=== PATIENT | female | born 1990 | race Hispanic/Latino ===

== ENCOUNTER 2019-12-14 10:02 | Outpatient (CLI) | payer OTHER, SELFPAY ==
--- NOTE | ~2019-12-14 | US_ITS ---
EXAMINATION: US OB follow up DATE: 12/14/2019 10:31 INDICATION: Declining beta hCG levels. TECHNIQUE: Real-time transabdominal obstetric ultrasound. FINDINGS: No prior studies for comparison. There is a single living fetus in variable presentation. The placenta is posterior with placenta pre via. cardiac activity and movement is noted with a heart rate of 161 beats per minute. T he amniotic fluid volume is subjectively normal. The following biometric data were obtained: BPD: 30mm corresponds to gestational age 15 weeks 3 days. Head circumference: 108mm corresponds to gestational age 15 weeks 1 days. Abdominal circumference: 91mm corresponds to gestational age 15 weeks 2 days. Femur length: 17mm corresponds to gestational age 14 weeks 6 days. Estimated weight: 115grams +/- 17grams.] IMPRESSION: 1. Single living intrauterine in variable presentation with an estimated gestational age o f 15 weeks 1 days by current ultrasound. EDC by measurements is 06/05/2020. 2. Placenta previa. Reviewed, dictated and finalized at location B. IMPRESSION: 1. Single living intrauterine in variable presentation with an estim ated gestational age of 15 weeks 1 days by current ultrasound. EDC by measureme nts is 06/05/2020. 2. Placenta previa.
== END 2019-12-14 10:03 | disposition home or self-care (01) ==
PROVIDERS: PCP Physician Assistant; Visit Provider Obstetrics & Gynecology Gynecology
DX: O44.02 Complete placenta previa NOS or without hemorrhage, second trimester (principal); Z3A.15 15 weeks gestation of pregnancy
CPT/HCPCS: 76816

== ENCOUNTER 2020-01-01 11:22 | Observation (INO) | payer OTHER, SELFPAY ==
[2020-01-01] VITALS (9 sets, daily range): BP systolic 114–127; BP diastolic 61–84; PULSE 84–135; TEMP 36.5; BMI 31.1
--- NOTE | ~2020-01-01 | US_ITS ---
EXAMINATION: US right upper quadrant EXAM DATE: 01/01/2020 16:24 INDICATION: Right upper quadrant pain. TECHNIQUE: Multiple grayscale and Doppler images of the abdomen right upper quadrant were obtained (b y a technologist who performed the scan) and subsequently reviewed. There is no prior study for allan connelly. FINDINGS: The pancreatic head and body are normal in appearance. The pancreatic tail is not visualized. The l iver has normal echogenicity and contour. There are no focal liver lesions identified. There is no evidence of intrahepatic biliary duct dilation. Portal venous flow was seen in the hepatopedal, nor mal direction and has normal Doppler waveform. No right-sided hydronephrosis. Common bile duct measures 4 mm, which is normal. The gallbladder wall is normal in thickness, with ex pected amount of distention. No sonographic evidence of pericholecystic fluid. There is cholelithia sis. Technologist performing exam reports patient did not demonstrate sonographic Contreras's sign. P jerri note that this sign is less reliable in patients who have received pain medication. IMPRESSION: 1. Cholelithiasis. Reviewed, dictated and finalized at location A. IMPRESSION: 1. Cholelithiasis.
--- NOTE | 2020-01-01 12:27 | OBADM ---
This patient, Gricelda Hand, admitted to the OB room OB Post 115 for observation. Patient/family oriented to hospital policies and general routines including ID bracelet, bed and alarms, visiting hours, pain management, procedures, bathroom and other care routines, personal items, smoking policy, room service/diet, and visiting hours. Patient/Family are encouraged to report perceived risks to care and to ask questions if they do not understand what they are told or what they should do.
[2020-01-01 13:07] LABS: Add Urine Microscopic? YES; Appearance Urine Clear (Clear); Bacteria Urine Trace /hpf; Bilirubin Urine 1+ (Negative); Blood Urine Negative (Negative); Color Urine Amber (Yellow); Glucose Urine UA 1+ mg/dL (Negative); Ketones Urine Negative (Negative); Leukocyte Esterase Ur Negative LEU/UL (NEGATIVE); Mucus Urine Rare /lpf; Nitrate Urine Negative (Negative); Protein Urine 1+ mg/dL (Negative); RBC Urine 0-2 /hpf (0-2); Specific Grav Ur 1.029 (1.001-1.035); Squamous Epithelial Cell Urine Many /hpf (Few); WBC Urine 0-3 /hpf (0-3)
[2020-01-01 14:19] LABS: Glucose Point of Care 48 (65-105)
[2020-01-01] MEDS: DEXTROSE 5%/LACTATED RINGERS 1,000 ML 100 ML IV CONT (14:23)
[2020-01-01 14:25] LABS: Hemoglobin 12.2 g/dL (12.0-15.0); Mean Corpuscular Hemoglobin 26.9 pg (26-34); Mean Corpuscular Volume 81.5 fl (80-100); Mean Platelet Volume 10.3 fl (7.4-10.4); Platelet Count Result 253 k/mm3 (150-375); Red Blood Count 4.54 M/mm3 (4.2-5.4); Red Cell Distribution Width 17.6 % (11.5-14.5); White Blood Count 9.1 K/mm3 (4.5-10.0)
[2020-01-01 14:45] LABS: Alanine Aminotransferase 96 U/L (4-35); Albumin Level 3.5 g/dL (3.5-5.1); Alkaline Phosphatase 93 U/L (38-126); Anion Gap 7.7 mmol/L (7-16); Aspartate Amino Transferase 152 U/L (14-36); Bilirubin,Total 0.8 mg/dL (0.2-1.3); Blood Urea Nitrogen 7 mg/dL (7-17); Calcium 8.9 mg/dL (8.4-10.2); Carbon Dioxide 23 mmol/L (22-30); Chloride 108 mmol/L (98-107); Estimated CRCL calculation 180 ml/min; Estimated Glomerular Filt Rate > 60; Glucose 51 mg/dL (65-105); Potassium 3.7 mmol/L (3.4-5.0); Sodium 135 mmol/L (137-145)
--- NOTE | 2020-01-01 15:07 | PC.NURSE ---
1357--Low blood sugar reported per pt device. Reported to Dr. Aranda. Order for D5LR given. Pt asymptomatic at this time.
--- NOTE | 2020-01-01 15:08 | PC.NURSE ---
1405--Nguyen from vascular access at bedside to start IV.
[2020-01-01] MEDS: INSULIN ASPART (*BKC) 100 UNITS/ML 26 UNITS SUB-Q (17:30)
[2020-01-01 18:05] LABS: Glucose Point of Care 84 (65-105)
[2020-01-01 19:19] LABS: Glucose Point of Care 153 (65-105)
--- NOTE | 2020-01-01 19:44 | PC.NURSE ---
several blood sugars done with her monitor 1530=55 with d5lr going 1630=43 given grahm crackers and milk 1715=85 and dinner is coming will do the rest of the blood sugars with our monitor and use our insulin
[2020-01-01] MEDS: INSULIN HUMAN NPH (*BKC) 100 UNITS/ML 36 UNITS SUB-Q (21:44)
[2020-01-01 21:50] LABS: Glucose Point of Care 99 (65-105)
--- NOTE | 2020-01-02 05:25 | PC.NURSE ---
Pt called out stating she felt like her blood sugar was low.
[2020-01-02 05:36] LABS: Glucose Point of Care 59 (65-105)
--- NOTE | 2020-01-02 05:40 | PC.NURSE ---
Pt states she does not like milk. Guilherme crackers and peanut butter given. Instructed pt we will still check blood sugar prior to breakfast.
--- NOTE | 2020-01-02 07:00 | PC.NURSE ---
Pt sound asleep when RN entered the room. Pt states she has not ordered breakfast yet, instructed to do so and to notify RN when she does so her blood sugar can be checked. Pt verbalized understanding.
[2020-01-02 07:42] LABS: Glucose Point of Care 143 (65-105)
--- NOTE | 2020-01-02 07:49 | PC.NURSE ---
Voicemail left for manufactured buildings repairer about a consult.
--- NOTE | 2020-01-02 08:07 | PC.NURSE ---
Dr. Dennis in department. Update given. New orders received to change bedtime NPH dose.
[2020-01-02] MEDS: INSULIN HUMAN NPH (*BKC) 100 UNITS/ML 30 UNITS SUB-Q (08:27)
[2020-01-02] MEDS: INSULIN ASPART (*BKC) 100 UNITS/ML 26 UNITS SUB-Q (08:28)
[2020-01-02 09:09] VITALS: BP 120/79; PULSE 92
[2020-01-02 09:13] VITALS: RESP 16; TEMP 36.6
[2020-01-02 10:51] LABS: Glucose Point of Care 190 (65-105)
--- NOTE | 2020-01-02 12:08 | PM.OBPNVD ---
OB - PN: Subj Subjective Date/time seen: 01/02/20 12:08 Patient seen this am reports she felt a little shaky but not bad overnite with low blood sugar she ate luba crackers and peanut butter. yesterday sugars were off because of vomiting and late meals. OB - PN: Obj Data Labs CBC & Chem 7: 01/01/20 14:17 01/01/20 14:17 Labs: Laboratory Results - last 24 hr 01/01/20 01/01/20 01/01/20 12:34 14:16 14:17 WBC 9.1 RBC 4.54 Hgb 12.2 Hct 37.0 MCV 81.5 MCH 26.9 MCHC 33.0 RDW 17.6 H Plt Count 253 MPV 10.3 Sodium Potassium Chloride Carbon Dioxide Anion Gap BUN Creatinine Estim Creat Clear Calc Estimated GFR Glucose POC Capillary Glucose 48 L* Calcium Total Bilirubin AST ALT Alkaline Phosphatase Total Protein Albumin Urine Color Flor Urine Appearance Clear Urine pH 7.0 Ur Specific [place] 1.029 Urine Protein 1+ H Urine Glucose (UA) 1+ H Urine Ketones Negative Ur Blood (Man) Negative Urine Nitrate Negative Urine Bilirubin 1+ H Urine Urobilinogen 4.0 H Ur Leukocyte Esterase Negative Urine RBC 0-2 Urine WBC 0-3 Ur Squamous Epith Cells Many H Urine Bacteria Trace Urine Mucus Rare 01/01/20 01/01/20 01/01/20 14:17 18:02 19:15 WBC RBC Hgb Hct MCV MCH MCHC RDW Plt Count MPV Sodium 135 L Potassium 3.7 Chloride 108 H Carbon Dioxide 23 Anion Gap 7.7 BUN 7 Creatinine 0.40 L Estim Creat Clear Calc 180 Estimated GFR > 60 Glucose 51 L* POC Capillary Glucose 84 153 H Calcium 8.9 Total Bilirubin 0.8 AST 152 H ALT 96 H Alkaline Phosphatase 93 Total Protein 6.0 L Albumin 3.5 Urine Color Urine Appearance Urine pH Ur Specific [place] Urine Protein Urine Glucose (UA) Urine Ketones Ur Blood (Man) Urine Nitrate Urine Bilirubin Urine Urobilinogen Ur Leukocyte Esterase Urine RBC Urine WBC Ur Squamous Epith Cells Urine Bacteria Urine Mucus 01/01/20 01/02/20 01/02/20 21:43 05:34 07:39 WBC RBC Hgb Hct MCV MCH MCHC RDW Plt Count MPV Sodium Potassium Chloride Carbon Dioxide Anion Gap BUN Creatinine Estim Creat Clear Calc Estimated GFR Glucose POC Capillary Glucose 99 59 L* 143 H Calcium Total Bilirubin AST ALT Alkaline Phosphatase Total Protein Albumin Urine Color Urine Appearance Urine pH Ur Specific [place] Urine Protein Urine Glucose (UA) Urine Ketones Ur Blood (Man) Urine Nitrate Urine Bilirubin Urine Urobilinogen Ur Leukocyte Esterase Urine RBC Urine WBC Ur Squamous Epith Cells Urine Bacteria Urine Mucus 01/02/20 10:27 WBC RBC Hgb Hct MCV MCH MCHC RDW Plt Count MPV Sodium Potassium Chloride Carbon Dioxide Anion Gap BUN Creatinine Estim Creat Clear Calc Estimated GFR Glucose POC Capillary Glucose 190 H Calcium Total Bilirubin AST ALT Alkaline Phosphatase Total Protein Albumin Urine Color Urine Appearance Urine pH Ur Specific [place] Urine Protein Urine Glucose (UA) Urine Ketones Ur Blood (Man) Urine Nitrate Urine Bilirubin Urine Urobilinogen Ur Leukocyte Esterase Urine RBC Urine WBC Ur Squamous Epith Cells Urine Bacteria Urine Mucus Imaging Radiologist's impression: Impressions Upper Quadrant Ultrasound 01/01/20 16:28 IMPRESSION: 1. Cholelithiasis. OB - PN A/P Assessment and Plan (1) Type 2 diabetes mellitus complicating in second trimester, antepartum: Code(s): O24.112 - Pre-existing type 2 diabetes mellitus, in , second trimester Status: Acute Assessment and Plan: continue to monitor accuchecks
[2020-01-02 12:25] LABS: Glucose Point of Care 87 (65-105)
--- NOTE | 2020-01-02 12:33 | PC.NURSE ---
Dr. Aranda notified of pt's blood glucose prior to lunch. No new orders given.
--- NOTE | 2020-01-02 13:31 | PC.NURSE ---
Another voicemail left for Vanessa, the public health educator.
[2020-01-02 14:53] LABS: Glucose Point of Care 164 (65-105)
[2020-01-02 16:00] VITALS: BMI 31.1
--- NOTE | 2020-01-02 16:07 | PC.NURSE ---
Vanessa, the development educator, at bedside.
[2020-01-02 17:03] VITALS: TEMP 36.7
[2020-01-02 17:07] VITALS: BP 112/31; PULSE 149
[2020-01-02 17:52] LABS: Glucose Point of Care 193 (65-105)
--- NOTE | 2020-01-02 17:55 | PC.NURSE ---
Dr. Aranda notified of pt's blood sugar prior to dinner. New orders received for 28 units of Novalog to be given with dinner.
[2020-01-02] MEDS: INSULIN ASPART (*BKC) 100 UNITS/ML 28 UNITS SUB-Q (18:30)
[2020-01-02 20:29] LABS: Glucose Point of Care 208 (65-105)
[2020-01-02 21:39] VITALS: BP 119/63; PULSE 105
[2020-01-02 21:42] LABS: Glucose Point of Care 179 (65-105)
[2020-01-02] MEDS: INSULIN HUMAN NPH (*BKC) 100 UNITS/ML 34 UNITS SUB-Q (21:58)
[2020-01-03] VITALS (9 sets, daily range): BP systolic 108–140; BP diastolic 62–89; PULSE 85–105; RESP 16–20; TEMP 36.3–36.9; O2SAT 86–100
[2020-01-03 07:18] LABS: Glucose Point of Care 73 (65-105)
--- NOTE | 2020-01-03 07:47 | PM.GYNPNOP ---
DIESEL LOCOMOTIVE FIRER/FIREMAN - A/P Assessment and plan (1) Type 2 diabetes mellitus complicating in second trimester, antepartum: Code(s): O24.112 - Pre-existing type 2 diabetes mellitus, in , second trimester Status: Acute Assessment and Plan: adjusting diet and insulin continue and if continues to improve in numbers and understanding will dc tomorrow am patient decided she was obsessing over her glucose monitor and wants to take a break from it Time Spent With Patient Time: Total time spent is greater than 50% in coordination of care (as documented) at patient's floor/unit and/or counseling patient: Time with patient: less than 15 minutes DIESEL LOCOMOTIVE FIRER/FIREMAN- PN:Subj Post-Op Subjective Date/time seen: 01/03/20 07:47 Interval history: Patient feeling better understanding of her diet and insulin and the importance of timing and not overcorrecting. Exam GI: Other: +FHTs soft nt DIESEL LOCOMOTIVE FIRER/FIREMAN - PN: Obj Data Vital Signs Vital Signs: Vital Signs - 24 hr 01/02/20 09:09 01/02/20 09:13 01/02/20 17:03 Temperature 97.9 F 98.1 F Pulse Rate 92 Respiratory Rate 16 Blood Pressure 120/79 01/02/20 17:07 01/02/20 21:39 Temperature Pulse Rate 149 H 105 H Respiratory Rate Blood Pressure 112/31 L 119/63 Meds/Results Medications: Active Medications Generic Name Dose Route Start Last Admin Trade Name Freq PRN Reason Stop Dose Admin Dextrose 12.5 gm 01/03/20 07:24 Dextrose 50% Syringe IV PUSH PRN PRN Hypoglycemia Protocol Glucagon 1 mg 01/03/20 07:24 Glucagon For Inj IM PRN PRN Hypoglycemia Protocol Glucose 15 gm 01/03/20 07:24 Glutose 15 PO PRN PRN Hypoglycemia Protocol Lactated Ringer's 1,000 mls @ 100 mls/hr 01/01/20 13:20 Lr - Lactated Ringers Iv IV CONT .Q10H YUDELKA Dextrose/Lactated Ringer's 1,000 mls @ 100 mls/hr 01/01/20 14:15 01/01/20 14:23 Dextrose 5%/Lactated Ringers IV CONT 100 mls/hr .Q10H YUDELKA Administration Dextrose 1,000 mls @ 100 mls/hr 01/03/20 07:24 Dextrose 5% 1,000 Ml IVPB PRN PRN Hypoglycemia Protocol Radiology Results: ITS Impressions Upper Quadrant Ultrasound 01/01/20 16:28 IMPRESSION: 1. Cholelithiasis. Labs CBC & Chem 7: 01/01/20 14:17 01/01/20 14:17 Labs: Laboratory Results - last 24 hr 01/02/20 01/02/20 01/02/20 10:27 12:19 14:48 POC Capillary Glucose 190 H 87 164 H 01/02/20 01/02/20 01/02/20 17:48 20:27 21:34 POC Capillary Glucose 193 H 208 H 179 H 01/03/20 07:14 POC Capillary Glucose 73
[2020-01-03] MEDS: INSULIN ASPART (*BKC) 100 UNITS/ML 26 UNITS SUB-Q (08:16)
[2020-01-03] MEDS: INSULIN HUMAN NPH (*BKC) 100 UNITS/ML 30 UNITS SUB-Q (08:17)
--- NOTE | 2020-01-03 08:50 | PC.NURSE ---
Dr. Aranda called with order for surgery consult due to cholelithiasis. Discussed pt's concern about missing appt at MD office yesterday and need for repeat U/S. Dr. Aranda states pt has a placenta previa, but since she hasn't had any active bleeding during the , it is OK for her to walk. Pt does have lifting restrictions. Pt to make appointment to see Dr. Aranda next Tuesday; MD office will contact [facility] and get U/S scheduled for next week.
--- NOTE | 2020-01-03 09:03 | PC.NURSE ---
Rosa at Dr. Love's office notified of consult.
[2020-01-03 10:33] LABS: Glucose Point of Care 114 (65-105)
--- NOTE | 2020-01-03 11:46 | PC.NURSE ---
Pt states she feels like her blood sugar is low. Feels flushed and jittery. Also, has some numbness/tingling in her tongue. Accucheck 44. Pt doesn't like to drink milk. The turkey from a box lunch and 1/2 a peach fruit cup given.
[2020-01-03 11:48] LABS: Glucose Point of Care 44 (65-105)
--- NOTE | 2020-01-03 11:51 | PC.NURSE ---
Dr. Aranda returned page and informed of episode of hypoglycemia and interventions used.
--- NOTE | 2020-01-03 12:08 | PC.NURSE ---
Accucheck still low at 48. Pt remains alert; states jitteriness has resolved. Pt given the rest of the fruit cup.
[2020-01-03 12:13] LABS: Glucose Point of Care 48 (65-105)
--- NOTE | 2020-01-03 12:25 | PC.NURSE ---
Bedside accucheck still 49. Pt is alert and oriented; states she doesn't feel jittery like before. Peanut butter given. Dietary states pt's tray is on the way.
--- NOTE | 2020-01-03 12:30 | PC.NURSE ---
Pt's lunch tray here and pt set up to eat. Remains alert and denies feeling any symptoms of hypoglycemia.
--- NOTE | 2020-01-03 13:02 | PM.CNGS ---
Assessment and Plan Assessment and plan (1) Cholelithiases: Code(s): K80.20 - Calculus of gallbladder without cholecystitis without obstruction Status: Acute Assessment and Plan: The patient has evidence of cholelithiasis on ultrasound. There is no evidence of acute cholecystitis at this time. She is no longer having any abdominal pain and is non-tender on exam. WBC and LFTs are normal. I discussed the patient's case and plan of care with Dr. Love. No indication for surgery at this time. The patient is already eating a diabetic diet, but I did also recommend following a low fat diet. If the patient has any further surgical issues, please let us know. Thank you for allowing us to see the patient in consultation. (2) Nausea and vomiting during : Code(s): O21.9 - Vomiting of , unspecified Status: Acute (3) Type 1 diabetes mellitus affecting in second trimester, antepartum: Code(s): O24.012 - Pre-existing type 1 diabetes mellitus, in , second trimester Status: Acute History of Present Illness Consult details Consult date: 01/03/20 Reason for consult: gallstones Requesting physician: Estefany Aranda MD Narrative: This is a 29-year-old female with type 1 diabetes mellitus who is 18 weeks gestation and presented to the hospital 2 days ago for right upper quadrant abdominal pain and blood glucose monitoring. The patient reports she has been having issues with controlling her blood sugars at home fluctuating between both too high and too low. She reports that for the last few weeks she began noticing mild right upper quadrant and epigastric abdominal pain that would start in the late evening or during the night. The pain was tolerable and would spontaneously resolve before the morning. This would happen a few times during the week. She felt that typically it was after eating spicy foods at dinner. She has also had associated nausea and vomiting at night that would resolve and not occur during the daytime. Three days ago, the patient had the same type of abdominal pain start during the night, but this time it continued into the morning which was unusual. She had vomited once that morning. She reports that she was supposed to come into the hospital for glucose monitoring this week and decided to come in early that day due to the pain. She had a right upper quadrant abdominal ultrasound that showed cholelithiasis. Labs revealed a normal white blood cell count, normal LFTs, and hypoglycemia. She states that her pain, nausea, and vomiting resolved throughout the day. Since then, she states that the last two nights she had not had any symptoms at all. No abdominal pain, nausea, or vomiting and she is currently tolerating a diabetic diet. She has also been avoiding high fat foods while in the hospital. Our service was consulted for the findings of cholelithiasis. The patient is now being seen in the OB unit. She denies fever, chills, diarrhea, or current abdominal pain. No other complaints at this time. Review of Systems Constitutional: Constitutional: Reports as per HPI, Denies chills, Denies excessive sweating, Denies fatigue, Denies fever(s), Denies headache(s) and Denies weakness Eyes: Eyes: Denies change in vision and Denies loss of vision ENT: Reports Normal hearing present, Denies dizziness and Denies headache(s) Cardiovascular: Cardiovascular: Denies chest pain, Denies syncope, Denies leg edema, Denies lightheadedness, Denies radiating jaw, neck or arm pain and Denies dyspnea Respiratory: Respiratory: Denies cough, Denies dyspnea and Denies wheezing Gastrointestinal: Gastrointestinal: Reports as per HPI, Reports no additional gastrointestinal complaints, Reports abdominal pain (epigastric and RUQ), Denies bloating, Denies change in bowel habits, Denies constipation, Denies dysphagia, Denies diarrhea, Denies loose stools, Reports nausea and Reports vomiting Musculoskeleta
--- NOTE | 2020-01-03 13:04 | PC.NURSE ---
Pt just finished eating her lunch. States all symptoms have resolved. Accucheck 56.
--- NOTE | 2020-01-03 13:11 | PC.NURSE ---
Dr. Aranda on unit and updated on pt's blood sugars and interventions.
[2020-01-03 13:30] LABS: Glucose Point of Care 56 (65-105)
[2020-01-03 13:30] LABS: Glucose Point of Care 67 (65-105)
[2020-01-03 13:30] LABS: Glucose Point of Care 49 (65-105)
[2020-01-03 14:44] LABS: Glucose Point of Care 75 (65-105)
[2020-01-03 17:02] LABS: Glucose Point of Care 133 (65-105)
[2020-01-03] MEDS: INSULIN ASPART (*BKC) 100 UNITS/ML 24 UNITS SUB-Q (17:52)
--- NOTE | 2020-01-03 18:03 | PM.PNGS ---
Progress Note: A&P Assessment and Plan (1) Nausea and vomiting during : Code(s): O21.9 - Vomiting of , unspecified Status: Acute Assessment and Plan: this seems to be much improved. Her symptoms could be due to gallstones but I would certainly want to avoid surgery unless there were signs of acute cholecystitis. Recommend low-fat diet and continued observation. I discussed the symptoms of cholecystitis with her. Okay for low-fat diet. We will follow along with you. (2) Cholelithiases: Code(s): K80.20 - Calculus of gallbladder without cholecystitis without obstruction Status: Acute Assessment and Plan: See above. (3) Type 1 diabetes mellitus affecting in second trimester, antepartum: Code(s): O24.012 - Pre-existing type 1 diabetes mellitus, in , second trimester Status: Acute Assessment and Plan: Abdominal symptoms could be associated with elevated blood sugars and . Follow diabetic diet as well as avoiding fatty meals. Subjective Subjective Date/Time Seen: 01/03/20 18:03 Patient is a very nice 29-year-old woman who is an insulin-dependent diabetic. She is 18 weeks gestational age . She has been having some right upper quadrant and epigastric abdominal pain but not very severe. Then 3 days ago she had a pretty bad episode. She also has some poorly-controlled blood sugars and these have been managed while she is in the hospital. She has not had any abdominal pain or nausea in the last 3 days. She had an ultrasound which showed gallstones but no evidence of cholecystitis. She is seen in consultation regarding her abdominal pain and gallstones. She has no pain at all right now. She has no nausea. Her blood sugars are showing better control. Review of Systems Review of Systems: All systems reviewed & are unremarkable except as noted in HPI and below ( HPI) Exam GI: Inspection: non-distended, no scars and other ( gravid uterus) GI Palp: Yes Soft to palpation, No Tenderness to palpation present (GI), No Hepatomegaly present, No Hernia present and No Palpable mass present Auscultation: normal bowel sounds Objective Data Vital Signs Vital Signs: Vital Signs - 24 hr 01/02/20 21:39 01/03/20 08:04 01/03/20 08:05 Temperature 36.7 C Pulse Rate 105 H 91 85 Respiratory Rate 20 Blood Pressure 119/63 116/62 116/62 Pulse Oximetry 97 99 01/03/20 12:00 01/03/20 12:01 01/03/20 12:15 Temperature 36.3 C L Pulse Rate 105 H 103 H 92 Respiratory Rate 20 Blood Pressure 128/74 140/89 120/71 Pulse Oximetry 01/03/20 16:51 01/03/20 16:52 Temperature 36.9 C Pulse Rate 93 93 Respiratory Rate 16 Blood Pressure 108/62 108/62 Pulse Oximetry 97 98 Intake/Output Intake/Output: Intake & Output 12/31/19 01/01/20 01/02/20 01/03/20 23:59 23:59 23:59 23:59 Intake Total 200 400 Balance 200 400 Meds/Results Medications: Active Medications Generic Name Dose Route Start Last Admin Trade Name Freq PRN Reason Stop Dose Admin Dextrose 12.5 gm 01/03/20 07:24 Dextrose 50% Syringe IV PUSH PRN PRN Hypoglycemia Protocol Glucagon 1 mg 01/03/20 07:24 Glucagon For Inj IM PRN PRN Hypoglycemia Protocol Glucose 15 gm 01/03/20 07:24 Glutose 15 PO PRN PRN Hypoglycemia Protocol Dextrose 1,000 mls @ 100 mls/hr 01/03/20 07:24 Dextrose 5% 1,000 Ml IVPB PRN PRN Hypoglycemia Protocol Radiology Results: ITS Impressions Upper Quadrant Ultrasound 01/01/20 16:28 IMPRESSION: 1. Cholelithiasis. Labs Labs: Laboratory Results - last 24 hr 01/02/20 01/02/20 01/03/20 20:27 21:34 07:14 POC Capillary Glucose 208 H 179 H 73 01/03/20 01/03/20 01/03/20 10:27 11:46 12:08 POC Capillary Glucose 114 H 44 L* 48 L* 01/03/20 01/03/20 01/03/20 12:25 13:04 13:25 POC Capillary Glucose 49 L*
[2020-01-03 19:35] LABS: Glucose Point of Care 249 (65-105)
--- NOTE | 2020-01-03 19:38 | PC.NURSE ---
193- called Dr. Aranda- informed of BS of 249 1 hour postprandial. will not correct now. will recheck at bedtime and call with BS.
[2020-01-03 21:28] LABS: Glucose Point of Care 176 (65-105)
--- NOTE | 2020-01-03 21:28 | PC.NURSE ---
2127- called Dr. Aranda- bedtime BS-176- order received for 34 units of NPH x 1 dose. will continue to monitor pt and call if concerns.
[2020-01-03] MEDS: INSULIN HUMAN NPH (*BKC) 100 UNITS/ML 34 UNITS SUB-Q (21:52)
[2020-01-03 23:57] LABS: Glucose Point of Care 53 (65-105)
--- NOTE | 2020-01-04 00:04 | PC.NURSE ---
2353-pt called out c/o feeling jittery and flush. requesting BS be checked. BS checked via fingerstick-53. 4 oz apple juice given po. will recheck BS in 15 minutes.
--- NOTE | 2020-01-04 00:25 | PC.NURSE ---
0020- BS rechecked- 58- pt feeling better. pt given pack of 3 luba crackers and 3/4 oz peanut butter. will recheck BS in 15 minutes.
[2020-01-04 00:26] LABS: Glucose Point of Care 58 (65-105)
[2020-01-04 00:43] LABS: Glucose Point of Care 57 (65-105)
[2020-01-04 00:44] LABS: Glucose Point of Care 56 (65-105)
--- NOTE | 2020-01-04 00:46 | PC.NURSE ---
0040- BS rechecked- 57. pt checked her BS on her monitor and got 67. pt feeling fine, not jittery,not flush. will continue to monitor pt.
[2020-01-04 01:15] LABS: Glucose Point of Care 88 (65-105)
[2020-01-04 04:01] VITALS: BP 102/48; PULSE 25; PULSE 45; PULSE 88; O2SAT 82
[2020-01-04 04:05] VITALS: BP 102/48; PULSE 94; RESP 16; TEMP 36.3; O2SAT 95
[2020-01-04 07:15] LABS: Glucose Point of Care 131 (65-105)
[2020-01-04 07:30] VITALS: BP 116/62; PULSE 86; PULSE 94; RESP 14; TEMP 36.2; O2SAT 100; O2SAT 99
[2020-01-04 07:31] VITALS: BP 116/62; PULSE 93
[2020-01-04 07:35] VITALS: PULSE 95; O2SAT 96
--- NOTE | 2020-01-04 07:52 | PM.PNGS ---
Progress Note: A&P Assessment and Plan (1) Nausea and vomiting during : Code(s): O21.9 - Vomiting of , unspecified Status: Acute Assessment and Plan: Patient's symptoms have resolved. No further issues over the past, now, 3 nights. Recommend following a low fat diet. If further issues arise, please let us know. Otherwise, we will try to avoid surgery during the if there is no evidence of acute cholecystitis, which there is not currently. We will sign off at this point. She can follow-up with us as an outpatient after the if she continues to have symptoms felt to be related to her gallbladder, and we could discuss elective cholecystectomy at that time. (2) Cholelithiases: Code(s): K80.20 - Calculus of gallbladder without cholecystitis without obstruction Status: Acute Assessment and Plan: See above. (3) Type 1 diabetes mellitus affecting in second trimester, antepartum: Code(s): O24.012 - Pre-existing type 1 diabetes mellitus, in , second trimester Status: Acute Assessment and Plan: Continue to follow a diabetic diet as well. Additional Plan I discussed the plan of care with Dr. Love. Subjective Subjective Date/Time Seen: 01/04/20 07:52 Patient reports: no new complaints and feels better Exam Const: General: comfortable, no acute distress, alert and awake Orientation/consciousness: patient oriented x3 GI: Inspection: normal to inspection, non-distended and other ( gravid uterus) GI Palp: No abdominal tenderness, Yes Soft to palpation, No Guarding due to palpation present (GI) and No Rebound tenderness present Auscultation: normal bowel sounds Neuro: General: moves all extremities and no focal motor deficits Psych: Mental Status: mental status grossly normal Insight: Good insight present (Psych) Judgement: Good judgement present (Psych) Objective Data Vital Signs Vital Signs: Vital Signs - 24 hr 01/03/20 08:04 01/03/20 08:05 01/03/20 12:00 Temperature 98.1 F Pulse Rate 91 85 105 H Respiratory Rate 20 Blood Pressure 116/62 116/62 128/74 Pulse Oximetry 97 99 01/03/20 12:01 01/03/20 12:15 01/03/20 16:51 Temperature 97.3 F L Pulse Rate 103 H 92 93 Respiratory Rate 20 Blood Pressure 140/89 120/71 108/62 Pulse Oximetry 97 01/03/20 16:52 01/03/20 19:30 01/03/20 19:31 Temperature 98.5 F Pulse Rate 93 102 H 103 H Respiratory Rate 16 18 Blood Pressure 108/62 125/64 125/64 Pulse Oximetry 98 100 86 L 01/04/20 04:01 01/04/20 04:05 01/04/20 07:30 Temperature 97.4 F L 97.2 F L Pulse Rate 88 94 86 Respiratory Rate 16 14 Blood Pressure 102/48 L 102/48 L 116/62 Pulse Oximetry 82 L 95 100 01/04/20 07:31 01/04/20 07:35 Temperature Pulse Rate 93 Respiratory Rate Blood Pressure 116/62 Pulse Oximetry 96 Intake/Output Intake/Output: Intake & Output 01/01/20 01/02/20 01/03/20 01/04/20 23:59 23:59 23:59 23:59 Intake Total 200 400 Balance 200 400 Meds/Results Medications: Active Medications Generic Name Dose Route Start Last Admin Trade Name Freq PRN Reason Stop Dose Admin Dextrose 12.5 gm 01/03/20 07:24 Dextrose 50% Syringe IV PUSH PRN PRN Hypoglycemia Protocol Glucagon 1 mg 01/03/20 07:24 Glucagon For Inj IM PRN PRN Hypoglycemia Protocol Glucose 15 gm 01/03/20 07:24 Glutose 15 PO PRN PRN Hypoglycemia Protocol Dextrose 1,000 mls @ 100 mls/hr 01/03/20 07:24 Dextrose 5% 1,000 Ml IVPB PRN PRN Hypoglycemia Protocol Radiology Results: ITS Impressions Upper Quadrant Ultrasound 01/01/20 16:28 IMPRESSION: 1. Cholelithiasis. Labs Labs: Laboratory Results - last 24 hr 01/03/20 01/03/20 01/03/20 10:27 11:46 12:08 POC Capillary Glucose 114 H 44 L* 48 L* 01/03/20 01/03/20 01/03/20 12:25 13:04 13:25 POC Capillary Glucose 49 L* 5
[2020-01-04] MEDS: INSULIN HUMAN NPH (*BKC) 100 UNITS/ML 28 UNITS SUB-Q (08:24)
[2020-01-04] MEDS: INSULIN ASPART (*BKC) 100 UNITS/ML 26 UNITS SUB-Q (08:24)
--- NOTE | 2020-01-04 09:16 | PM.OBPNVD ---
OB - PN: Subj Subjective Date/time seen: 01/04/20 09:16 Interval history: No complaints. Continues to have better understanding of DM and wants to do accucheck instead of monitor as she is less anxious OB - PN: Obj Data Labs CBC & Chem 7: 01/01/20 14:17 01/01/20 14:17 Labs: Laboratory Results - last 24 hr 01/03/20 01/03/20 01/03/20 10:27 11:46 12:08 POC Capillary Glucose 114 H 44 L* 48 L* 01/03/20 01/03/20 01/03/20 12:25 13:04 13:25 POC Capillary Glucose 49 L* 56 L* 67 01/03/20 01/03/20 01/03/20 14:37 16:54 19:29 POC Capillary Glucose 75 133 H 249 H 01/03/20 01/03/20 01/04/20 21:24 23:54 00:20 POC Capillary Glucose 176 H 53 L* 58 L* 01/04/20 01/04/20 01/04/20 00:38 00:39 01:12 POC Capillary Glucose 57 L* 56 L* 88 01/04/20 07:10 POC Capillary Glucose 131 H OB - PN A/P Assessment and Plan (1) Type 2 diabetes mellitus complicating in second trimester, antepartum: Code(s): O24.112 - Pre-existing type 2 diabetes mellitus, in , second trimester Status: Acute Assessment and Plan: Will dc home today. Keep follow up Time Spent With Patient Time: Total time spent is greater than 50% in coordination of care (as documented) at patient's floor/unit and/or counseling patient:
--- NOTE | 2020-01-04 09:18 | PM.DS ---
DS: Admitting Diagnosis Admitting Diagnosis Admitting Diagnosis: Pre-existing type 2 diabetes mellitus, in , second trimester DS: Discharge Diagnosis Discharge Diagnosis (1) Type 2 diabetes mellitus complicating in second trimester, antepartum: Code(s): O24.112 - Pre-existing type 2 diabetes mellitus, in , second trimester Status: Acute DS: Summary Time Spent with Patient Time attestation: Total time spent providing and/or coordinating discharge services: DS: Data Data Completed and Pending Labs on day of discharge: Labs from last 24 hours 01/04/20 01/04/20 01/04/20 07:10 01:12 00:39 POC Capillary Glucose 131 H 88 56 L* 01/04/20 01/04/20 01/03/20 00:38 00:20 23:54 POC Capillary Glucose 57 L* 58 L* 53 L* 01/03/20 01/03/20 01/03/20 21:24 19:29 16:54 POC Capillary Glucose 176 H 249 H 133 H 01/03/20 01/03/20 01/03/20 14:37 13:25 13:04 POC Capillary Glucose 75 67 56 L* 01/03/20 01/03/20 01/03/20 12:25 12:08 11:46 POC Capillary Glucose 49 L* 48 L* 44 L* 01/03/20 10:27 POC Capillary Glucose 114 H Discharge Plan Discharge Attending physician on discharge: Estefany Aranda Discharging Clinician: Estefany Aranda Anticipated Discharge Date/Time: 01/04/20 09:19 Patient Disposition: Home, Self-Care Activity: pelvic rest Diet: diabetic Patient Instructions: Antibiotic Form Stand Alone Forms: General Discharge Information Follow-up/Referrals: Estefany Aranda MD [Physician] - Keep Reg. Scheduled Appt. Discharge Medications: New (DME) lancets [Accu-Chek Softclix Lancets] Misc See Rx Instructions .ROUTE .MEDSUPPLY Qty: 50 RF: 6 insulin lispro [Humalog U-100 Insulin] 100 unit/mL solution 26 unit SUB-Q QACBREAK Qty: 10 RF: 12 Continued PNV cmb#95-ferrous fumarate-FA [] 28 mg iron- 800 mcg Tablet 1 tablet PO DAILY RF: 0 Humalog U-100 Insulin 26 units subcut QACDINNER RF: 0 (DME) Contour Next Test Strips Strip See Rx Instructions .ROUTE .MEDSUPPLY Qty: 200 RF: 6 Glucagon Emergency Kit (human) 1 mg recon soln 1 mg SUB-Q Q20M PRN (Reason: hypoglycemia) Qty: 1 RF: 0 Changed Humulin N NPH U-100 Insulin 100 unit/mL Suspension 28 unit SUBCUT QAM Qty: 0 RF: 0 Humulin N NPH U-100 Insulin 100 unit/mL Suspension 32 unit SUBCUT HS Qty: 0 RF: 0 No Action (DME) Omnipod Dash 5 Pack Pod Cartridge See Rx Instructions .ROUTE .MEDSUPPLY Qty: 5 RF: 5 Date of admission: 01/01/20 11:22 Primary Care Provider: Kenna,Yenifer Admitting Provider: Estefany Aranda Attending physician on admission: Estefany Aranda Quality VTE Prophylaxis VTE prophylaxis: mechanical ordered
--- NOTE | 2020-01-04 09:55 | PC.NURSE ---
0732-Arabella BANEGASN-Surgery at bedside for assessment. Pt reports no pain upon palpation of abdomen. VSS. Plan of care discussed.
[2020-01-04 10:03] LABS: Glucose Point of Care 180 (65-105)
--- NOTE | 2020-01-04 10:07 | PC.NURSE ---
1005-Dr. Aranda updated with pt geo.
== END 2020-01-04 11:00 | disposition home or self-care (01) ==
PROVIDERS: Admitting Provider Obstetrics & Gynecology Gynecology; PCP Physician Assistant; Visit Provider Obstetrics & Gynecology Gynecology
DX: O99.612 Diseases of the digestive system complicating pregnancy, second trimester (principal); K80.20 Calculus of gallbladder without cholecystitis without obstruction; O24.012 Pre-existing type 1 diabetes mellitus, in pregnancy, second trimester; O21.0 Mild hyperemesis gravidarum; Z3A.18 18 weeks gestation of pregnancy; Z87.891 Personal history of nicotine dependence; Z79.4 Long term (current) use of insulin; Z79.899 Other long term (current) drug therapy
CPT/HCPCS: 36415; 76705; 80053; 81001; 85027; 87086; 87088; 96360; 96361; G0378; G0379; J1815; J7121

== ENCOUNTER 2020-04-11 09:27 | Outpatient (RCR) | payer OTHER, SELFPAY ==
[2020-04-11 10:04] VITALS: BP 117/59; PULSE 90
== END 2020-06-02 07:52 | disposition home or self-care (01) ==
LOC: ANHOBOP 09:27
PROVIDERS: PCP Physician Assistant; Visit Provider Obstetrics & Gynecology Gynecology
DX: O24.419 Gestational diabetes mellitus in pregnancy, unspecified control (principal); Z3A.32 32 weeks gestation of pregnancy
CPT/HCPCS: 59025

== ENCOUNTER 2020-04-11 09:27 | Outpatient (RCR) | payer OTHER, SELFPAY ==
[2020-03-06 08:14] LABS: Collection Time Urine 24 HOURS
[2020-03-06 08:28] LABS: Hemoglobin 12.4 g/dL (12.0-15.0); Mean Corpuscular HGB Conc 33.5 g/dl (32-36); Mean Corpuscular Hemoglobin 28.3 pg (26-34); Mean Corpuscular Volume 84.5 fl (80-100); Mean Platelet Volume 10.2 fl (7.4-10.4); Platelet Count Result 203 k/mm3 (150-375); Red Blood Count 4.38 M/mm3 (4.2-5.4); Red Cell Distribution Width 14.8 % (11.5-14.5); White Blood Count 8.4 K/mm3 (4.5-10.0)
[2020-03-06 08:39] LABS: Partial Thromboplastin Time 26.9 SECONDS (22.3-36.8)
[2020-03-06 08:40] LABS: Alanine Aminotransferase 11 U/L (4-35); Albumin Level 3.2 g/dL (3.5-5.1); Alkaline Phosphatase 75 U/L (38-126); Anion Gap 9 mmol/L (8-16); Aspartate Amino Transferase 15 U/L (14-36); Bilirubin,Total 0.2 mg/dL (0.2-1.3); Blood Urea Nitrogen 8 mg/dL (7-17); Calcium 9.2 mg/dL (8.4-10.2); Carbon Dioxide 20 mmol/L (22-30); Chloride 106 mmol/L (98-107); Estimated Glomerular Filt Rate > 60; Glucose 159 mg/dL (65-105); Lactate Dehydrogenase 287 U/L (313-618); Potassium 3.9 mmol/L (3.4-5.0); Sodium 135 mmol/L (137-145); Uric Acid 3.4 mg/dL (2.5-7.5)
[2020-03-06 08:43] LABS: Hemoglobin A1C 6.5 % (<5.7)
[2020-03-06 09:30] LABS: HIV 1/2 Ab P24 Ag Result Negative (Negative)
[2020-03-06 09:47] LABS: Vitamin D 25 Hydroxy 21.3 ng/mL
[2020-03-06 09:56] LABS: Creatinine Urine 42.3 mg/dL; Patient Weight 160 Lbs; Total Protein Urine Random 14 mg/dL
[2020-03-06 10:07] LABS: Creatinine Clearance Urine 164.7 ml/min (75-125); Total Protein Urine 24 Hr 329 MG/DAY (28-141); Total Volume 24 Hour Urine 2350 ml
[2020-03-08] MEDS: RHO(D) IMMUNE GLOBULIN 300 MCG SYRINGE IM (08:11)
== END 2020-06-04 23:59 | disposition home or self-care (01) ==
LOC: ANHLAB 09:27
PROVIDERS: PCP Physician Assistant; Visit Provider Obstetrics & Gynecology Gynecology
DX: Z11.4 Encounter for screening for human immunodeficiency virus [HIV] (principal); Z29.13 Encounter for prophylactic Rho(D) immune globulin; O14.02 Mild to moderate pre-eclampsia, second trimester; O36.0920 Maternal care for other rhesus isoimmunization, second trimester, not applicable or unspecified; Z3A.00 Weeks of gestation of pregnancy not specified
CPT/HCPCS: 36415; 80053; 81050; 82306; 82565; 82575; 83036; 83615; 84156; 84550; 85014; 85018; 85027; 85461; 85730; 86703; 90384; 96372; G0432; J2790

== ENCOUNTER 2020-04-20 20:16 | Observation (INO) | payer OTHER, SELFPAY ==
--- NOTE | ~2020-04-20 | US_ITS ---
US right upper quadrant INDICATION: Gallstones. Abdomen pain. PROCEDURE: Realtime right upper abdominal ultrasound. COMPARISON: Ultrasound dated 01/01/2020 FINDINGS: The pancreas is normal without focal mass or pancreatic ductal dilation. Liver echotexture is normal without focal mass or intrahepatic biliary dilatation. There is normal directional flow i n the portal vein. There are gallstones. No gallbladder wall thickening, or pericholecystic fluid. Common bile duct horacio ures 4 mm. Positive sonographic Contreras's sign. IMPRESSION: 1: Cholelithiasis with positive sonographic Contreras's sign. Consider cholecystitis in the appropriate clinical setting. Reviewed, dictated and finalized at location A. TESTER IMPRESSION: 1: Cholelithiasis with positive sonographic Contreras's sign. Consider cholecystit is in the appropriate clinical setting.
--- NOTE | ~2020-04-20 | US_ITS ---
EXAMINATION: US abdomen limited EXAM DATE: 04/23/2020 08:18 INDICATION: cholelithiasis gallstones. TECHNIQUE: Multiple grayscale and Doppler images of the abdomen right upper quadrant were obtained (b y a technologist who performed the scan) and subsequently reviewed. Comparison is made to prior exami nation from 04/21/2020. FINDINGS: The pancreatic head and body are normal in appearance. The pancreatic tail is not visualized. The l iver has normal echogenicity and contour. There are no focal liver lesions identified. There is no evidence of intrahepatic biliary duct dilation. Portal venous flow was seen in the hepatopedal, nor mal direction and has normal Doppler waveform. No right-sided hydronephrosis. Common bile duct measures 4 mm, which is normal. The gallbladder wall is normal in thickness, with ex pected amount of distention. No sonographic evidence of pericholecystic fluid. Again there is gallb ladder sludge and poorly calcified cholelithiasis. Technologist performing exam reports patient did not demonstrate sonographic Contreras's sign. Please note that this sign is less reliable in patients w ho have received pain medication. IMPRESSION: Gallbladder sludge and cholelithiasis. No biliary duct dilation, pericholecystic fluid, g allbladder wall thickening or sonographic Contreras's sign. Reviewed, dictated and finalized at location B. GLES ROOFER IMPRESSION: Gallbladder sludge and cholelithiasis. No biliary duct dilation, pe richolecystic fluid, gallbladder wall thickening or sonographic Contreras's sign.
[2020-04-20 20:52] VITALS: BP 107/67; PULSE 94
[2020-04-20 21:42] LABS: Add Urine Microscopic? YES; Amorphous Sediment Urine Moderate; Appearance Urine Cloudy (Clear); Bacteria Urine Trace /hpf; Bilirubin Urine Negative (Negative); Blood Urine Negative (Negative); Color Urine Amber (Yellow); Glucose Urine UA Negative (Negative); Ketones Urine 1+ mg/dL (Negative); Leukocyte Esterase Ur Negative LEU/UL (Negative); Mucus Urine Rare /lpf; Nitrate Urine Negative (Negative); Protein Urine 1+ mg/dL (Negative); RBC Urine 0-2 /hpf (0-2); Specific Grav Ur 1.016 (1.001-1.035); Squamous Epithelial Cell Urine Many /hpf (Few)
[2020-04-20 21:52] LABS: Alanine Aminotransferase 26 U/L (4-35); Albumin Level 3.3 g/dL (3.5-5.1); Alkaline Phosphatase 116 U/L (38-126); Anion Gap 8 mmol/L (8-16); Aspartate Amino Transferase 51 U/L (14-36); Bilirubin,Total 1.2 mg/dL (0.2-1.3); Blood Urea Nitrogen 6 mg/dL (7-17); Calcium 9.2 mg/dL (8.4-10.2); Carbon Dioxide 22 mmol/L (22-30); Chloride 107 mmol/L (98-107); Estimated Glomerular Filt Rate > 60; Glucose 56 mg/dL (65-105); Potassium 3.4 mmol/L (3.4-5.0); Sodium 137 mmol/L (137-145)
[2020-04-20] MEDS: HYDROcodone/acetaminophen (*CRX) 5-325 MG TABLET 1 TAB PO (22:25)
[2020-04-20 22:26] VITALS: BMI 36.3
--- NOTE | 2020-04-20 22:30 | OBADM ---
This patient, Gricelda Hand, admitted to the OB room OB Post 117 for observation. Patient/family oriented to hospital policies and general routines including ID bracelet, bed and alarms, visiting hours, pain management, procedures, bathroom and other care routines, personal items, smoking policy, room service/diet, and visiting hours. Patient/Family are encouraged to report perceived risks to care and to ask questions if they do not understand what they are told or what they should do.
--- NOTE | 2020-04-20 23:31 | PC.NURSE ---
Pt stated she did not eat well today because of the gallbladder pain. Reported blood sugar was 80 prior to eating dinner. States she took her insulin and had a lean cuisine with 35g carbs.
[2020-04-21] VITALS (7 sets, daily range): BP systolic 91–191; BP diastolic 38–136; PULSE 83–103; TEMP 36.9
[2020-04-21 00:04] LABS: Glucose Point of Care 47 (65-105)
[2020-04-21 00:04] LABS: Glucose Point of Care 72 (65-105)
[2020-04-21] MEDS: INSULIN HUMAN NPH (*BKC) 100 UNITS/ML 27 UNITS SUB-Q (00:36)
[2020-04-21] MEDS: HYDROcodone/acetaminophen (*CRX) 5-325 MG TABLET 1 TAB PO ×2 (00:36→22:41)
[2020-04-21] MEDS: FAMOTIDINE 20 MG TABLET PO (00:37)
[2020-04-21 01:07] LABS: Glucose Point of Care 76 (65-105)
[2020-04-21 02:34] LABS: Glucose Point of Care 112 (65-105)
--- NOTE | 2020-04-21 07:43 | WPDOBADMIT ---
Obstetrics - Admit Note Admission Note: record reviewed. No pertinent additions to the history and/or any subsequent changes in the physical findings that are not consistent with the expected course of the were found. Additions to the history and/or subsequent changes in the physical findings follow. Here with RUQ pain with known gallstones. Pain ok now unless presses on RUQ. No other complaints. Accu checks noted to be erratic with some as low as 40 so kept overnight. PE: appears comfortable VSS afebrile abdomen soft, tender RUQ fundus soft, nt FHTs reactive a/p 1. IUP 33 4/7 with with RUQ pain and known gallstones. AST increased slightly. Will repeat RUQ u/s and labs this am. 2. IDDM-continue diet and insulin post us
[2020-04-21 07:49] LABS: Glucose Point of Care 152 (65-105)
[2020-04-21 08:37] LABS: Basophils Percent Auto 0.4 % (0.2-1.2); Eosinophils Absolute Auto 0.2 K/mm3 (0-0.3); Eosinophils Percent Auto 2.3 % (0-4.4); Hemoglobin 12.1 g/dL (12.0-15.0); Immature Granulocyte Absolute 0.06 K/mm3 (0.00-0.031); Immature Granulocyte Percent A 0.7 % (0-0.5); Lymphocytes Absolute Auto 1.44 K/mm3 (0.9-3.2); Lymphocytes Percent Auto 17.6 % (18.3-44.2); Mean Corpuscular HGB Conc 32.7 g/dl (32-36); Mean Corpuscular Hemoglobin 27.5 pg (26-34); Mean Corpuscular Volume 84.1 fl (80-100); Mean Platelet Volume 10.7 fl (7.4-10.4); Monocytes Absolute Auto 0.5 K/mm3 (0.1-0.6); Monocytes Percent Auto 6.6 % (2.6-8.5); Neutrophils Absolute Auto 5.9 K/mm3 (1.3-6.7); Neutrophils Percent Auto 72.4 % (45.5-73.1); Platelet Count Result 173 k/mm3 (150-375); Red Cell Distribution Width 14.3 % (11.5-14.5); White Blood Count 8.2 K/mm3 (4.5-10.0)
[2020-04-21 08:53] LABS: Alanine Aminotransferase 25 U/L (4-35); Albumin Level 3.4 g/dL (3.5-5.1); Alkaline Phosphatase 127 U/L (38-126); Anion Gap 9 mmol/L (8-16); Aspartate Amino Transferase 38 U/L (14-36); Bilirubin,Total 0.6 mg/dL (0.2-1.3); Blood Urea Nitrogen 5 mg/dL (7-17); Calcium 8.6 mg/dL (8.4-10.2); Carbon Dioxide 17 mmol/L (22-30); Chloride 108 mmol/L (98-107); Estimated CRCL calculation 188 ml/min; Estimated Glomerular Filt Rate > 60; Glucose 150 mg/dL (65-105); Potassium 4.2 mmol/L (3.4-5.0); Sodium 134 mmol/L (137-145)
--- NOTE | 2020-04-21 10:00 | PC.NURSE ---
Patient ate breakfast and is now having increase in abd pain and now vomiting. Dr Aranda notified and orders obtained.
[2020-04-21] MEDS: INSULIN HUMAN NPH (*BKC) 100 UNITS/ML 68 UNITS SUB-Q (10:16)
[2020-04-21] MEDS: INSULIN ASPART (*BKC) 100 UNITS/ML 54 UNITS SUB-Q (10:17)
--- NOTE | 2020-04-21 11:00 | PC.NURSE ---
Dr Fung's office notified of consult.
--- NOTE | 2020-04-21 11:39 | PC.NURSE ---
DIETARY SUPERVISOR from [facility] office here to see patient. No few orders at this time.
--- NOTE | 2020-04-21 12:01 | PM.CNGS ---
Assessment and Plan Assessment and plan (1) Cholelithiases: Code(s): K80.20 - Calculus of gallbladder without cholecystitis without obstruction Status: Acute Assessment and Plan: This patient presents with evidence of cholelithiasis and suspicion for cholecystitis. Ultrasound shows evidence of gallstones with a positive Contreras's sign. Labs show a normal white blood cell count and normal LFTs. She continues to have persistent RUQ abdominal pain and currently is not able to tolerate a diet. Due to the size of her uterus at this point in the , she would not be a candidate for laparoscopic surgery. Therefore, she would likely require an open cholecystectomy if surgery were neccessary. There is also increased risk to proceed with this surgery during , such as pre-term labor and injury to the uterus. We will make the patient NPO for today to see if her pain improves and start IV fluids. We will re-evaluate the patient again tomorrow and see how she does. If her symptoms worsen or persist, then we may need to consider surgical intervention. I have discussed the plan with the patient in detail and answered her questions. Thank you for allowing us to see the patient in consultation and we will continue to follow along with you. (2) Insulin-dependent diabetes mellitus during , antepartum: Status: Acute Assessment and Plan: Patient unable to tolerate breakfast. Will make her NPO and start IV fluids with dextrose to help prevent issues with hypoglycemia. Continue glucose monitoring. Will see how she is doing again tomorrow. (3) Nausea and vomiting during : Code(s): O21.9 - Vomiting of , unspecified Status: Acute Additional Plan Discussed the patient's case and plan of care with Dr. Fung. History of Present Illness Consult details Consult date: 04/21/20 Reason for consult: gallstones (abdominal pain with nausea and vomiting) Requesting physician: Estefany Aranda MD Narrative: This is a 29-year-old female with insulin-dependent diabetes mellitus and known gallstones who is 33 weeks 4 days gestation. She was previously seen by our service earlier in her for abdominal pain and cholelithiasis in December. At that time, her pain had resolved and she was tolerating a low fat diet. She was instructed to follow that low fat diet and monitor her symptoms. She reportedly had no further symptoms or abdominal pain after until 2 days ago. She reports eating a high fat chicken deisi meal Tuesday evening with an acute onset of right upper quadrant abdominal pain shortly following her meal. The pain was more severe than before and persistent. She reports associated nausea and vomiting. She has not been able to keep any food down since Tuesday. She reports anything that she would eat or drink, including water would aggravate her symptoms and she would vomit. She has now been admitted to the OB unit with hypoglycemia and abdominal pain. Labs this morning show a normal white blood cell count and normal liver function tests. Right upper quadrant abdominal ultrasound shows cholelithiasis with a positive Contreras's sign. The patient had some improvement in abdominal pain initially this morning prior to breakfast, and shortly after eating her abdominal pain worsened again with also nausea and vomiting. She reports that taking deep breaths worsens her abdominal pain and she cannot find any position that is comfortable. The pain radiates to her mid back. She also feels very bloated. No other complaints at this time. Review of Systems Constitutional: Constitutional: Reports as per HPI, Denies chills, Denies excessive sweating, Denies fatigue, Denies fever(s), Denies headache(s) and Denies weakness Eyes: Eyes: Denies change in vision and Denies loss of vision ENT: Reports Normal hearing present, Denies dizziness and Denies headache(s) Cardiovascular: Cardiovascular: Denies chest pain, Denies sy
[2020-04-21] MEDS: LACTATED RINGERS 1,000 ML 125 ML IV CONT ×2 (12:46→20:57)
--- NOTE | 2020-04-21 15:12 | PC.NURSE ---
Dr Aranda notified of low blood sugar, orders obtained.
[2020-04-21 16:04] LABS: Glucose Point of Care 41 (65-105)
[2020-04-21 16:04] LABS: Glucose Point of Care 36 (65-105)
[2020-04-21 16:04] LABS: Glucose Point of Care 84 (65-105)
--- NOTE | 2020-04-21 17:15 | PC.NURSE ---
Patient now having increase in pain after eating a clear liquid.
[2020-04-21] MEDS: MORPHINE SULFATE (*CRX) 2 MG/ML INJ IV PUSH (17:40)
--- NOTE | 2020-04-21 18:57 | PC.NURSE ---
Addendum entered by Tamia Guevara RN 04/21/20 18:58: At 1452 Original Note: Patient called out stating she was hot and sweaty, Blood sugar 36, juice give.
[2020-04-21 20:06] LABS: Glucose Point of Care 41 (65-105)
--- NOTE | 2020-04-21 20:10 | PC.NURSE ---
Juice and Jello given
[2020-04-21 21:23] LABS: Glucose Point of Care 146 (65-105)
[2020-04-22] VITALS (7 sets, daily range): BP systolic 97–114; BP diastolic 51–60; PULSE 87–99; RESP 17–18; TEMP 36.6–36.8
[2020-04-22 00:06] LABS: Glucose Point of Care 65 (65-105)
--- NOTE | 2020-04-22 00:13 | PC.NURSE ---
1 josue reid. Instructed pt as always to notify staff if she feels her blood sugar is low. Pt had been sleeping comfortably.
[2020-04-22 04:05] LABS: Glucose Point of Care 45 (65-105)
--- NOTE | 2020-04-22 04:08 | PC.NURSE ---
Blood sugar checked, apple juice and 2 jello cups given. Pt states she feels fine.
[2020-04-22] MEDS: LACTATED RINGERS 1,000 ML 125 ML IV CONT (04:50)
[2020-04-22 05:39] LABS: Mean Corpuscular HGB Conc 32.3 g/dl (32-36); Mean Corpuscular Volume 83.8 fl (80-100); Mean Platelet Volume 10.4 fl (7.4-10.4); Platelet Count Result 161 k/mm3 (150-375); Red Cell Distribution Width 14.4 % (11.5-14.5); White Blood Count 6.8 K/mm3 (4.5-10.0)
[2020-04-22 05:58] LABS: Potassium 3.3 mmol/L (3.4-5.0)
[2020-04-22 06:18] LABS: Alanine Aminotransferase 20 U/L (4-35); Albumin Level 2.7 g/dL (3.5-5.1); Alkaline Phosphatase 100 U/L (38-126); Anion Gap 8 mmol/L (8-16); Aspartate Amino Transferase 26 U/L (14-36); Bilirubin,Total 0.3 mg/dL (0.2-1.3); Blood Urea Nitrogen 4 mg/dL (7-17); Calcium 8.1 mg/dL (8.4-10.2); Carbon Dioxide 21 mmol/L (22-30); Chloride 106 mmol/L (98-107); Estimated CRCL calculation 188 ml/min; Estimated Glomerular Filt Rate > 60; Glucose 123 mg/dL (65-105); Sodium 135 mmol/L (137-145)
--- NOTE | 2020-04-22 07:55 | PM.OBPNVD ---
OB - PN: Subj Subjective Date/time seen: 04/22/20 07:55 Nausea minimal this am. Pain increased after breakfast yesterday so surgical consult obtained. Patient on clears since then and has had waxing and waning pain. Morphine x 1 and [place] x 1. Pain this am increased again but not requesting pain meds. OB - PN: Obj Data Labs CBC & Chem 7: 04/22/20 05:21 04/22/20 05:21 Labs: Laboratory Results - last 24 hr 04/21/20 04/21/20 04/21/20 08:26 08:26 14:51 WBC 8.2 RBC 4.40 Hgb 12.1 Hct 37.0 MCV 84.1 MCH 27.5 MCHC 32.7 RDW 14.3 Plt Count 173 MPV 10.7 H Immature Gran % (Auto) 0.7 H Neut % (Auto) 72.4 Lymph % (Auto) 17.6 L Pine % (Auto) 6.6 Eos % (Auto) 2.3 Baso % (Auto) 0.4 Lymph # (Auto) 1.44 Pine # (Auto) 0.5 Eos # (Auto) 0.2 Baso # (Auto) 0.0 Abs Immat Gran (auto) 0.06 H Absolute Neuts (auto) 5.9 Absolute Nucleated RBC 0.0 Nucleated RBC % 0.0 Sodium 134 L Potassium 4.2 Chloride 108 H Carbon Dioxide 17 L Anion Gap 9 BUN 5 L Creatinine 0.40 L Estim Creat Clear Calc 188 Estimated GFR > 60 Glucose 150 H POC Capillary Glucose 36 L* Calcium 8.6 Total Bilirubin 0.6 AST 38 H ALT 25 Alkaline Phosphatase 127 H Total Protein 6.0 L Albumin 3.4 L 04/21/20 04/21/20 04/21/20 15:33 16:01 20:03 WBC RBC Hgb Hct MCV MCH MCHC RDW Plt Count MPV Immature Gran % (Auto) Neut % (Auto) Lymph % (Auto) Pine % (Auto) Eos % (Auto) Baso % (Auto) Lymph # (Auto) Pine # (Auto) Eos # (Auto) Baso # (Auto) Abs Immat Gran (auto) Absolute Neuts (auto) Absolute Nucleated RBC Nucleated RBC % Sodium Potassium Chloride Carbon Dioxide Anion Gap BUN Creatinine Estim Creat Clear Calc Estimated GFR Glucose POC Capillary Glucose 41 L* 84 41 L* Calcium Total Bilirubin AST ALT Alkaline Phosphatase Total Protein Albumin 04/21/20 04/22/20 04/22/20 21:21 00:04 04:02 WBC RBC Hgb Hct MCV MCH MCHC RDW Plt Count MPV Immature Gran % (Auto) Neut % (Auto) Lymph % (Auto) Pine % (Auto) Eos % (Auto) Baso % (Auto) Lymph # (Auto) Pine # (Auto) Eos # (Auto) Baso # (Auto) Abs Immat Gran (auto) Absolute Neuts (auto) Absolute Nucleated RBC Nucleated RBC % Sodium Potassium Chloride Carbon Dioxide Anion Gap BUN Creatinine Estim Creat Clear Calc Estimated GFR Glucose POC Capillary Glucose 146 H 65 45 L* Calcium Total Bilirubin AST ALT Alkaline Phosphatase Total Protein Albumin 04/22/20 04/22/20 05:21 05:21 WBC 6.8 RBC 3.70 L Hgb 10.0 L Hct 31.0 L MCV 83.8 MCH 27.0 MCHC 32.3 RDW 14.4 Plt Count 161 MPV 10.4 Immature Gran % (Auto) Neut % (Auto) Lymph % (Auto) Pine % (Auto) Eos % (Auto) Baso % (Auto) Lymph # (Auto) Pine # (Auto) Eos # (Auto) Baso # (Auto) Abs Immat Gran (auto) Absolute Neuts (auto) Absolute Nucleated RBC Nucleated RBC % Sodium 135 L Potassium 3.3 L Chloride 106 Carbon Dioxide 21 L Anion Gap 8 BUN 4 L Creatinine 0.40 L Estim Creat Clear Calc 188 Estimated GFR > 60 Glucose 123 H POC Capillary Glucose Calcium 8.1 L Total Bilirubin 0.3 AST 26 ALT 20 Alkaline Phosphatase 100 Total Protein 5.0 L Albumin 2.7 L Imaging Radiologist's impression: Impressions Upper Quadrant Ultrasound 04/21/20 08:28 IMPRESSION: 1: Cholelithiasis with positive sonographic Contreras's sign. Consider cholecystitis in the appropriate clinical setting. OB - PN A/P Assessment and Plan (1) 33 weeks gestation of : Code(s): Z3A.33 - 33 weeks gestation of Statu
[2020-04-22 08:03] LABS: Glucose Point of Care 109 (65-105)
--- NOTE | 2020-04-22 08:24 | PC.NURSE ---
0749- at bedside to evaluate pt, discussed POC with patient.
[2020-04-22] MEDS: DEXTROSE 5%/0.9% SOD CHL 1,000 ML 100 ML IV CONT ×2 (09:33→18:34)
--- NOTE | 2020-04-22 09:51 | PC.NURSE ---
called,informed pt is crying and rating her pain a 7/10. Pt states the norco worked well for her last night.Orders received to give norco as needed for pain
[2020-04-22] MEDS: HYDROcodone/acetaminophen (*CRX) 10-325 MG TABLET 1 TAB PO (09:58)
[2020-04-22 12:01] LABS: Glucose Point of Care 151 (65-105)
--- NOTE | 2020-04-22 12:49 | PC.NURSE ---
Arabella Driscoll SUPERVISOR [employer] here to evaluate pt, will talk with and call back with POC.
--- NOTE | 2020-04-22 15:30 | PM.PNGS ---
Progress Note: A&P Assessment and Plan (1) Cholelithiases: Code(s): K80.20 - Calculus of gallbladder without cholecystitis without obstruction Status: Acute Assessment and Plan: The patient did have persistent abdominal pain through the night. Her pain have improved this morning with [place]. She is steam drier tender on my exam but appears more comfortable today. Repeat labs this morning were unremarkable. We will try to advance her diet to see if she is able to tolerate this. If the patient cannot tolerate a diet, then we will make her NPO after midnight and reassess her symptoms and labs tomorrow. Again, we are trying to avoid surgical intervention if at all possible, until after she delivers. I discussed with the nurse to continue IV fluids with dextrose if she is unable to tolerate a diet and NPO after midnight, to help prevent the issues with hypoglycemia. (2) Insulin-dependent diabetes mellitus during , antepartum: Status: Acute Additional Plan Discussed the patient's case and plan of care with Dr. Fung. Subjective Subjective Date/Time Seen: 04/22/20 12:30 Patient reports: still having pain Interval history: Patient reports still having a significant amount of right upper quadrant abdominal pain overnight. She reportedly was in tears this morning due to abdominal pain and feels that water and juice is exacerbating the pain. She was drinking some liquids overnight, but did not have anything more than some water and a small amount of juice. She denies any nausea or vomiting today. She reports having [place] about 45 minutes prior to me coming into her room due to severe pain, and this improved her pain down to a 1/10 on a pain scale. She states she is scared to eat or drink anything because of the abdominal pain. No other complaints at this time. Review of Systems Review of Systems: All systems reviewed & are unremarkable except as noted in HPI and below Constitutional: Constitutional: Denies chills and Denies fever(s) Exam Const: General: alert, awake and uncomfortable GI: Inspection: non-distended GI Palp: Yes Soft to palpation, Yes Tenderness to palpation present (GI) (Right upper quadrant), Yes Guarding due to palpation present (GI) (Right upper quadrant), No Rigid due to palpation, No Rebound tenderness present and Yes Other GI palpation findings present (Gravid uterus) Auscultation: normal bowel sounds Skin: General skin exam: normal color Neuro: General: moves all extremities and no focal motor deficits Psych: Mental Status: mental status grossly normal Speech and movement: Normal speech and movement present Affect: Anxious affect present Attitude: cooperative Thought process: Normal thought process present Insight: Good insight present (Psych) Judgement: Good judgement present (Psych) Objective Data Vital Signs Vital Signs: Vital Signs - 24 hr 04/21/20 19:04 04/21/20 21:20 04/22/20 08:00 Temperature 98 F Pulse Rate 95 101 H Blood Pressure 122/65 Blood Pressure [Right Arm] 107/67 04/22/20 08:04 Temperature Pulse Rate 87 Blood Pressure 114/57 L Blood Pressure [Right Arm] Intake/Output Intake/Output: Intake & Output 04/19/20 04/20/20 04/21/20 04/22/20 23:59 23:59 23:59 23:59 Intake Total 1600 3030 Output Total 700 1400 Balance 900 1630 Meds/Results Medications: Active Medications Generic Name Dose Route Start Last Admin Trade Name Freq PRN Reason Stop Dose Admin Hydrocodone Bitart/Acetaminophen 1 tab 04/22/20 09:52 Hydrocodone/Acetaminophen (*Crx) 5-325 Mg Tablet PO Q4H PRN Pain Rated 4-6 Hydrocodone Bitart/Acetaminophen 1 tab 04/22/20 09:53 04/22/20 09:58 Hydrocodone/Acetaminophen (*Crx) 10-325 Mg Tablet PO 1 tab Q4H PRN Administration Pain Rated 7-10 Dextrose 12.5 gm 04/21/20 15:17 Dextrose 50% 25 Gm/50 Ml Syringe IV PUSH PRN PRN Hypoglycemia Protocol Glucagon 1 mg 03/31
--- NOTE | 2020-04-22 15:33 | PC.NURSE ---
1527-Arabella Driscoll PREHEMMER called with orders to advance diet as tolerated, if pt doesn't tolerate make NPO after midnight. Ordered CBC/CMP for in the am and Dr. Silva will come evaluate pt tomorrow.
[2020-04-22 15:47] LABS: Glucose Point of Care 171 (65-105)
--- NOTE | 2020-04-22 17:51 | PC.NURSE ---
1702- at bedside to assess pt and discuss POC.
[2020-04-22] MEDS: HYDROcodone/acetaminophen (*CRX) 5-325 MG TABLET 1 TAB PO (18:54)
[2020-04-22 19:38] LABS: Glucose Point of Care 247 (65-105)
[2020-04-22] MEDS: INSULIN ASPART (*BKC) 100 UNITS/ML SUB-Q ×2 (19:41→21:35)
[2020-04-22 21:15] LABS: Glucose Point of Care 244 (65-105)
[2020-04-22] MEDS: INSULIN HUMAN NPH (*BKC) 100 UNITS/ML 54 UNITS SUB-Q (21:35)
[2020-04-23 00:07] LABS: Glucose Point of Care 190 (65-105)
[2020-04-23] MEDS: HYDROcodone/acetaminophen (*CRX) 5-325 MG TABLET 1 TAB PO (01:07)
[2020-04-23 04:15] VITALS: BP 94/54; PULSE 88; RESP 18; TEMP 36.1
[2020-04-23 04:19] LABS: Glucose Point of Care 143 (65-105)
[2020-04-23 04:33] VITALS: BP 94/54; PULSE 88
[2020-04-23 04:35] LABS: Hematocrit 30.8 % (37.0-47.0); Mean Corpuscular HGB Conc 32.5 g/dl (32-36); Mean Corpuscular Hemoglobin 27.2 pg (26-34); Mean Corpuscular Volume 83.7 fl (80-100); Mean Platelet Volume 10.8 fl (7.4-10.4); Platelet Count Result 160 k/mm3 (150-375); Red Blood Count 3.68 M/mm3 (4.2-5.4); Red Cell Distribution Width 14.2 % (11.5-14.5); White Blood Count 5.5 K/mm3 (4.5-10.0)
[2020-04-23 04:52] LABS: Alanine Aminotransferase 20 U/L (4-35); Albumin Level 2.7 g/dL (3.5-5.1); Alkaline Phosphatase 105 U/L (38-126); Anion Gap 7 mmol/L (8-16); Aspartate Amino Transferase 27 U/L (14-36); Bilirubin,Total 0.5 mg/dL (0.2-1.3); Blood Urea Nitrogen 2 mg/dL (7-17); Carbon Dioxide 17 mmol/L (22-30); Chloride 112 mmol/L (98-107); Estimated CRCL calculation 188 ml/min; Estimated Glomerular Filt Rate > 60; Glucose 144 mg/dL (65-105); Potassium 3.5 mmol/L (3.4-5.0); Sodium 136 mmol/L (137-145)
[2020-04-23] MEDS: DEXTROSE 5%/0.9% SOD CHL 1,000 ML 100 ML IV CONT (05:36)
[2020-04-23 07:41] VITALS: BP 113/64; PULSE 85
[2020-04-23 07:41] LABS: Glucose Point of Care 136 (65-105)
--- NOTE | 2020-04-23 10:33 | PM.PNGS ---
Progress Note: A&P Assessment and Plan (1) Cholelithiases: Code(s): K80.20 - Calculus of gallbladder without cholecystitis without obstruction Status: Acute Assessment and Plan: No sign of cholecystitis. WBC normal, no gallbladder wall thickening, no fevers. I think we can try to control her pain and stay on a low fat diet to get her through until the end of her . If she fails this, then percutaneous cholecystostomy tube may be the next best option, but I discussed with patient that this is not without risk and she would have to maintain the drain until after she delivers. Surgery would be high risk and would likely be better suited at a facility that has neonatologists in case she would go into labor. Patient may be discharged today if tolerating low fat, she may follow up with me or one of my partners once she has delivered and we will arrange for lap jennifer electively. (2) Insulin-dependent diabetes mellitus during , antepartum: Status: Acute (3) Nausea and vomiting during : Code(s): O21.9 - Vomiting of , unspecified Status: Acute (4) 33 weeks gestation of : Code(s): Z3A.33 - 33 weeks gestation of Status: Acute Subjective Subjective Date/Time Seen: 04/23/20 10:33 Feeling a little better today. Occasional pain, no fevers. Tolerated diet yesterday. Exam GI: Inspection: non-distended and other GI Palp: Yes Soft to palpation, Yes Tenderness to palpation present (GI) (RUQ) and No Guarding due to palpation present (GI) Objective Data Vital Signs Vital Signs: Vital Signs - 24 hr 04/22/20 15:40 04/22/20 15:47 04/22/20 21:11 Temperature 36.6 C 36.8 C Pulse Rate 97 Respiratory Rate 17 18 Blood Pressure 108/60 Blood Pressure [Right Arm] 04/22/20 21:12 04/22/20 22:20 04/23/20 04:15 Temperature 36.1 C L Pulse Rate 99 99 88 Respiratory Rate 18 Blood Pressure 97/51 L 94/54 L Blood Pressure [Right Arm] 97/51 L 04/23/20 04:33 04/23/20 07:41 Temperature Pulse Rate 88 85 Respiratory Rate Blood Pressure 113/64 Blood Pressure [Right Arm] 94/54 L Intake/Output Intake/Output: Intake & Output 04/20/20 04/21/20 04/22/20 04/23/20 23:59 23:59 23:59 23:59 Intake Total 1600 4380 1690 Output Total 700 2150 1450 Balance 900 2230 240 Meds/Results Medications: Active Medications Generic Name Dose Route Start Last Admin Trade Name Freq PRN Reason Stop Dose Admin Hydrocodone Bitart/Acetaminophen 1 tab 04/22/20 09:52 04/23/20 01:07 Hydrocodone/Acetaminophen (*Crx) 5-325 Mg Tablet PO 1 tab Q4H PRN Administration Pain Rated 4-6 Hydrocodone Bitart/Acetaminophen 1 tab 04/22/20 09:53 04/22/20 09:58 Hydrocodone/Acetaminophen (*Crx) 10-325 Mg Tablet PO 1 tab Q4H PRN Administration Pain Rated 7-10 Dextrose 12.5 gm 04/21/20 15:17 Dextrose 50% 25 Gm/50 Ml Syringe IV PUSH PRN PRN Hypoglycemia Protocol Glucagon 1 mg 04/21/20 15:17 Glucagon For Inj 1 Mg Vial IM PRN PRN Hypoglycemia Protocol Glucose 15 gm 04/21/20 15:17 Glucose Oral Gel 15 Gm Of Glucse In 37.5 Gm Tube PO PRN PRN Hypoglycemia Protocol Dextrose/Sodium Chloride 1,000 mls @ 100 mls/hr 04/21/20 12:00 04/23/20 05:36 Dextrose 5% Sodium Chloride 0.9% IV CONT 100 mls/hr .Q10H YUDELKA Administration Dextrose 1,000 mls @ 100 mls/hr 04/21/20 15:17 Dextrose 5% 1,000 Ml IVPB PRN PRN Hypoglycemia Protocol Piperacillin/Tazobactam/Dextrose 3.375 gm in 50 mls @ 100 mls/hr 04/22/20 17:20 04/23/20 05:37 Zosyn 3.375 Gm/D5w 50ml Pm IVPB 100 mls/hr Q6HR YUDELKA Administration Insulin Aspart 3 - 6 units 04/21/20 17:00 04/22/20 21:38 Insulin Aspart (*Bkc) 100 Units/Ml SUB-Q Not Given TIDWM YUDELKA Protocol Radiology Results: ITS Impressions Upper Quadrant Ultrasound 04/21/20 08:28 IMPRESSION:
[2020-04-23] MEDS: INSULIN ASPART (*BKC) 100 UNITS/ML 27 UNITS SUB-Q (11:43)
[2020-04-23 11:59] LABS: Glucose Point of Care 123 (65-105)
[2020-04-23] MEDS: ACETAMINOPHEN 500 MG TABLET 1000 MG PO (12:55)
[2020-04-23] MEDS: CYCLOBENZAPRINE HCL 10 MG TABLET PO (12:55)
[2020-04-23 13:00] LABS: Glucose Point of Care 113 (65-105)
== END 2020-04-23 14:56 | disposition home or self-care (01) ==
PROVIDERS: Nurse Practitioner Family; Obstetrics & Gynecology Gynecology; Surgery; Admitting Provider Obstetrics & Gynecology; PCP Physician Assistant; Visit Provider Obstetrics & Gynecology
DX: O26.613 Liver and biliary tract disorders in pregnancy, third trimester (principal); K80.20 Calculus of gallbladder without cholecystitis without obstruction; O21.9 Vomiting of pregnancy, unspecified; Z3A.33 33 weeks gestation of pregnancy; O24.913 Unspecified diabetes mellitus in pregnancy, third trimester; Z79.4 Long term (current) use of insulin; Z96.41 Presence of insulin pump (external) (internal); Z87.891 Personal history of nicotine dependence
CPT/HCPCS: 36415; 59025; 76705; 80053; 81001; 85025; 85027; 96361; 96365; 96374; 96376; A9270; G0378; G0379; J1815; J2270; J2543; J7042; J7120

== ENCOUNTER 2020-04-25 12:25 | Observation (INO) | payer OTHER, SELFPAY ==
[2020-04-25 12:46] VITALS: BP 133/82; PULSE 104
--- NOTE | 2020-04-25 13:04 | PC.NURSE ---
Tessa at Dr. Love's answering service was informed of consult.
[2020-04-25 13:29] LABS: Basophils Percent Auto 0.6 % (0.2-1.2); Eosinophils Absolute Auto 0.2 K/mm3 (0-0.3); Eosinophils Percent Auto 2.2 % (0-4.4); Hematocrit 38.1 % (37.0-47.0); Hemoglobin 12.4 g/dL (12.0-15.0); Immature Granulocyte Absolute 0.04 K/mm3 (0.00-0.031); Immature Granulocyte Percent A 0.6 % (0-0.5); Lymphocytes Absolute Auto 1.41 K/mm3 (0.9-3.2); Lymphocytes Percent Auto 19.7 % (18.3-44.2); Mean Corpuscular HGB Conc 32.5 g/dl (32-36); Mean Corpuscular Hemoglobin 27.1 pg (26-34); Mean Corpuscular Volume 83.4 fl (80-100); Mean Platelet Volume 10.5 fl (7.4-10.4); Monocytes Absolute Auto 0.5 K/mm3 (0.1-0.6); Monocytes Percent Auto 7.3 % (2.6-8.5); Neutrophils Percent Auto 69.6 % (45.5-73.1); Platelet Count Result 198 k/mm3 (150-375); Red Blood Count 4.57 M/mm3 (4.2-5.4); Red Cell Distribution Width 14.6 % (11.5-14.5); White Blood Count 7.2 K/mm3 (4.5-10.0)
[2020-04-25 13:41] LABS: Alanine Aminotransferase 45 U/L (4-35); Albumin Level 3.2 g/dL (3.5-5.1); Alkaline Phosphatase 158 U/L (38-126); Anion Gap 8 mmol/L (8-16); Aspartate Amino Transferase 59 U/L (14-36); Bilirubin,Total 1.6 mg/dL (0.2-1.3); Blood Urea Nitrogen 4 mg/dL (7-17); Calcium 8.6 mg/dL (8.4-10.2); Carbon Dioxide 21 mmol/L (22-30); Chloride 106 mmol/L (98-107); Estimated Glomerular Filt Rate > 60; Glucose 140 mg/dL (65-105); Potassium 3.3 mmol/L (3.4-5.0); Sodium 135 mmol/L (137-145)
[2020-04-25] MEDS: HYDROcodone/acetaminophen (*CRX) 5-325 MG TABLET 1 TAB PO (14:15)
--- NOTE | 2020-04-25 16:07 | LDADM ---
This patient, Gricelda Hand, was admitted to OB Post 115 on 04/25/20 at 12:25. Plans for labor, pain management and were discussed with patient. Patient/family oriented to hospital policies and general routines including ID bracelet, bed and alarms, visiting hours, pain management, procedures, bathroom and other care routines, personal items, smoking policy, room service/diet and guest tray routines, infant security routines, and visiting hours. Patient/Family are encouraged to report perceived risks to care and to ask questions if they do not understand what they are told or what they should do. See OBIX for further documentation.
--- NOTE | 2020-04-25 16:08 | PC.NURSE ---
DISCUSSED PLAN OF CARE WITH DR LUKE. U/S DONE, LABS DONE AND WILL BE IN TOMORROW TO SEE HER. PT TEARFUL AND WILL DISCUSS WITH DR CARUSO ABOUT GETTING [place] THAT HELPED TODAY WITH HER PAIN 5/10 AND WENT TO A 2/10 WITHIN 2 HOURS.
--- NOTE | 2020-04-25 16:32 | PM.CNGS ---
Assessment and Plan Assessment and plan (1) Cholelithiasis with chronic cholecystitis: Code(s): K80.10 - Calculus of gallbladder with chronic cholecystitis without obstruction Status: Chronic Assessment and Plan: patient improved with analgesics and was able to be discharged before consultation was performed. (2) 33 weeks gestation of : Code(s): Z3A.33 - 33 weeks gestation of Status: Acute History of Present Illness Consult details Consult date: 04/25/20 [facility] Past Medical History Medical History Anxiety Insulin-dependent diabetes mellitus during , antepartum Surgical History Surgical History History of dilation and curettage Family History Family History Other Asthma Depression Family history of mental disorder Hypertension Social History Social History Smoking status: Former smoker Smoking end date: 05/30/16 Alcohol intake: current Substance use: never Additional living arrangements comments: With her and other two children. 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 Gender identity (if verbalized by the patient): Female Meds Home Medications and Allergies Home Medications Medication Instructions Recorded Confirmed Type insulin pump cartridge #5 each 09/24/19 01/03/20 Rx glucagon (human recombinant) 1 mg 1 mg SUB-Q Q20M PRN #1 each 09/26/19 01/03/20 Rx solution for injection Humalog U-100 Insulin 60 units SUBCUT QACDINNER 01/01/20 04/20/20 History PNV cmb#95-ferrous fumarate-FA 1 tablet PO DAILY 01/01/20 04/20/20 History [] Contour Next Test Strips #200 each 01/04/20 Rx lancets [Accu-Chek Softclix #50 each 01/04/20 Rx Lancets] Humulin N NPH U-100 Insulin 54 unit SUBCUT HS 04/20/20 04/20/20 History Humulin N NPH U-100 Insulin 68 unit SUBCUT QAM 11/22/20 11/22/20 History insulin lispro [Humalog U-100 54 unit SUB-Q QACBREAK 04/20/20 04/20/20 History Insulin] Allergies Allergy/AdvReac Type Severity Reaction Status Date / Time No Known Allergies Allergy Unverified 01/24/17 18:00 Vital Signs Vital Signs - 24 hr 04/25/20 12:46 Pulse Rate 104 H Blood Pressure 133/82 Results Labs Result diagrams: 04/25/20 13:20 04/25/20 13:20 Labs: Abnormal lab results 04/25/20 04/25/20 Range/Units 13:20 13:20 RDW 14.6 H (11.5-14.5) % MPV 10.5 H (7.4-10.4) fl Immature Gran % (Auto) 0.6 H (0-0.5) % Abs Immat Gran (auto) 0.04 H (0.00-0.031) K/mm3 Sodium 135 L (137-145) mmol/L Potassium 3.3 L (3.4-5.0) mmol/L Carbon Dioxide 21 L (22-30) mmol/L BUN 4 L (7-17) mg/dL Creatinine 0.50 L (0.7-1.0) mg/dL Glucose 140 H (65-105) mg/dL Total Bilirubin 1.6 H (0.2-1.3) mg/dL AST 59 H (14-36) U/L ALT 45 H (4-35) U/L Alkaline Phosphatase 158 H (38-126) U/L Total Protein 6.0 L (6.3-8.2) g/dL Albumin 3.2 L (3.5-5.1) g/dL Diabetes panel 04/25/20 Range/Units 13:20 Sodium 135 L (137-145) mmol/L Potassium 3.3 L (3.4-5.0) mmol/L Chloride 106 (98-107) mmol/L Carbon Dioxide 21 L (22-30) mmol/L BUN 4 L (7-17) mg/dL Creatinine 0.50 L (0.7-1.0) mg/dL Glucose 140 H (65-105) mg/dL Calcium 8.6 (8.4-10.2) mg/dL AST 59 H (14-36) U/L ALT 45 H (4-35) U/L Alkaline Phosphatase 158 H (38-126) U/L Total Protein 6.0 L (6.3-8.2) g/dL Albumin 3.2 L (3.5-5.1) g/dL Calcium panel 04/25/20 Range/Units 13:20 Calcium 8.6 (8.4-10.2) mg/dL Albumin 3.2 L (3.5-5.1) g/dL Pituitary panel 04/25/20 Range/Units 13:20 Sodium 135 L (137-145) mmol/L Potassium 3.3 L (3.4-5.0) mmol/L Chloride 106 (98-107)
--- NOTE | 2020-04-25 16:40 | P.PNOB_ITS ---
OB - Triage/Final Diagnosis Visit Information Date of evaluation: 04/25/20 Reason for evaluation: other (RUQ pain secondary to gallstones) Comments/Additional reasons for admission: Patient returned after no relief with flexeril for gallbladder pain. Given [place] and pain relieved. DC home on [place] 5/325 #30 and Flexeril 10 mg #30. Evaluation Laboratory results: Laboratory Tests 04/25/20 04/25/20 13:20 13:20 WBC 7.2 RBC 4.57 Hgb 12.4 Hct 38.1 MCV 83.4 MCH 27.1 MCHC 32.5 RDW 14.6 H Plt Count 198 MPV 10.5 H Immature Gran % (Auto) 0.6 H Neut % (Auto) 69.6 Lymph % (Auto) 19.7 [place] % (Auto) 7.3 Eos % (Auto) 2.2 Baso % (Auto) 0.6 Lymph # (Auto) 1.41 [place] # (Auto) 0.5 Eos # (Auto) 0.2 Baso # (Auto) 0.0 Abs Immat Gran (auto) 0.04 H Absolute Neuts (auto) 5.0 Absolute Nucleated RBC 0.0 Nucleated RBC % 0.0 Sodium 135 L Potassium 3.3 L Chloride 106 Carbon Dioxide 21 L Anion Gap 8 BUN 4 L Creatinine 0.50 L Estim Creat Clear Calc Not Reportable Estimated GFR > 60 Glucose 140 H Calcium 8.6 Total Bilirubin 1.6 H AST 59 H ALT 45 H Alkaline Phosphatase 158 H Total Protein 6.0 L Albumin 3.2 L Vital signs: Vital Signs - 24 hr 04/25/20 12:46 Pulse Rate 104 H Blood Pressure 133/82
== END 2020-04-25 16:50 | disposition home or self-care (01) ==
PROVIDERS: Admitting Provider Obstetrics & Gynecology Gynecology; PCP Physician Assistant; Visit Provider Obstetrics & Gynecology Gynecology
DX: O26.613 Liver and biliary tract disorders in pregnancy, third trimester (principal); K80.10 Calculus of gallbladder with chronic cholecystitis without obstruction; Z3A.33 33 weeks gestation of pregnancy; O24.414 Gestational diabetes mellitus in pregnancy, insulin controlled; Z79.4 Long term (current) use of insulin; Z87.891 Personal history of nicotine dependence
CPT/HCPCS: 36415; 80053; 85025; A9270; G0378; G0379

== ENCOUNTER 2020-05-29 05:15 | Inpatient (IN) | payer OTHER, SELFPAY ==
[2020-05-29] VITALS (102 sets, daily range): BP systolic 83–234; BP diastolic 45–183; PULSE 72–161; RESP 16–18; TEMP 35.4–37.1; O2SAT 85–100; BMI 37.8
[2020-05-29 06:15] LABS: Glucose Point of Care 94 (65-105)
[2020-05-29 06:19] LABS: Basophils Percent Auto 0.5 % (0.2-1.2); Eosinophils Absolute Auto 0.3 K/mm3 (0-0.3); Eosinophils Percent Auto 3.7 % (0-4.4); Hematocrit 32.7 % (37.0-47.0); Hemoglobin 10.9 g/dL (12.0-15.0); Immature Granulocyte Absolute 0.07 K/mm3 (0.00-0.031); Immature Granulocyte Percent A 0.9 % (0-0.5); Lymphocytes Absolute Auto 1.73 K/mm3 (0.9-3.2); Mean Corpuscular HGB Conc 33.3 g/dl (32-36); Mean Corpuscular Hemoglobin 26.9 pg (26-34); Mean Corpuscular Volume 80.7 fl (80-100); Mean Platelet Volume 11.5 fl (7.4-10.4); Monocytes Absolute Auto 0.4 K/mm3 (0.1-0.6); Monocytes Percent Auto 5.6 % (2.6-8.5); Neutrophils Absolute Auto 5.3 K/mm3 (1.3-6.7); Neutrophils Percent Auto 67.3 % (45.5-73.1); Platelet Count Result 181 k/mm3 (150-375); Red Blood Count 4.05 M/mm3 (4.2-5.4); Red Cell Distribution Width 14.3 % (11.5-14.5); White Blood Count 7.9 K/mm3 (4.5-10.0)
--- NOTE | 2020-05-29 06:39 | LDADM ---
This patient, Gricelda Hand, was admitted to Labor/Delivery/Recovery 103 on 05/29/20 at 05:15. Plans for labor, pain management and were discussed with patient. Patient/family oriented to hospital policies and general routines including ID bracelet, bed and alarms, visiting hours, pain management, procedures, bathroom and other care routines, personal items, smoking policy, room service/diet and guest tray routines, security routines, and visiting hours. Patient/Family are encouraged to report perceived risks to care and to ask questions if they do not understand what they are told or what they should do. See OBIX for further documentation.
[2020-05-29] MEDS: OXYTOCIN 30 UNITS/NS 500 ML 30 UNITS/500 ML BAG IV CONT (07:00)
--- NOTE | 2020-05-29 07:04 | WPDANESEPP ---
Anes - Eval Pre Procedure Procedure: labor epidural Date/Time: 05/29/20 07:04 Preop Diagnosis: labor pain Pre Op Diagnosis: Induction of Labor Patient Data Age: 29 Gender: F Height: 5 ft 4 in Weight: 100 kg Last Vital Signs Temp 36.6 C 05/29/20 05:45 Pulse 86 05/29/20 07:00 BP 118/87 05/29/20 07:00 Allergies Allergy/AdvReac Type Severity Reaction Status Date / Time No Known Allergies Allergy Verified 05/27/20 12:13 Home Medications Medication Instructions Recorded Confirmed Type insulin pump cartridge #5 each 09/24/19 01/03/20 Rx glucagon (human recombinant) 1 mg 1 mg SUB-Q Q20M PRN #1 each 09/26/19 01/03/20 Rx solution for injection Humalog U-100 Insulin 60 units SUBCUT QACDINNER 01/01/20 05/29/20 History PNV cmb#95-ferrous fumarate-FA 1 tablet PO DAILY 01/01/20 05/29/20 History [] Contour Next Test Strips #200 each 01/04/20 Rx lancets [Accu-Chek Softclix #50 each 01/04/20 Rx Lancets] Humulin N NPH U-100 Insulin 50 unit SUBCUT HS 04/20/20 05/29/20 History Humulin N NPH U-100 Insulin 70 unit SUBCUT QAM 04/20/20 05/29/20 History insulin lispro [Humalog U-100 54 unit SUB-Q QACBREAK 04/20/20 05/29/20 History Insulin] hydrocodone-acetaminophen [[place]] 1 tablet PO Q6H PRN #30 tablet 04/25/20 05/29/20 Rx Laboratory Tests 05/29/20 05/29/20 05/29/20 06:00 06:00 06:03 WBC 7.9 K/mm3 K/mm3 (4.5-10.0) RBC 4.05 M/mm3 L M/mm3 (4.2-5.4) Hgb 10.9 g/dL L g/dL (12.0-15.0) Hct 32.7 % L % (37.0-47.0) MCV 80.7 fl fl (80-100) MCH 26.9 pg pg (26-34) MCHC 33.3 g/dl g/dl (32-36) RDW 14.3 % % (11.5-14.5) Plt Count 181 k/mm3 k/mm3 (150-375) MPV 11.5 fl H fl (7.4-10.4) Immature Gran % (Auto) 0.9 % H % (0-0.5) Neut % (Auto) 67.3 % % (45.5-73.1) Lymph % (Auto) 22.0 % % (18.3-44.2) [place] % (Auto) 5.6 % % (2.6-8.5) Eos % (Auto) 3.7 % % (0-4.4) Baso % (Auto) 0.5 % % (0.2-1.2) Lymph # (Auto) 1.73 K/mm3 K/mm3 (0.9-3.2) [place] # (Auto) 0.4 K/mm3 K/mm3 (0.1-0.6) Eos # (Auto) 0.3 K/mm3 K/mm3 (0-0.3) Baso # (Auto) 0.0 K/mm3 K/mm3 (0.0-0.1) Abs Immat Gran (auto) 0.07 K/mm3 H K/mm3 (0.00-0.031) Absolute Neuts (auto) 5.3 K/mm3 K/mm3 (1.3-6.7) Absolute Nucleated RBC 0.0 K/mm3 K/mm3 (0.0-0.012) Nucleated RBC % 0.0 % % (0.0-0.2) POC Capillary Glucose 94 mg/dl mg/dl (65-105) RPR Pending Patient hx anesthesia problems: none Family hx anesthesia problems: none [facility] Past Medical History Medical History Anxiety Insulin-dependent diabetes mellitus during , antepartum Surgical History Surgical History History of dilation and curettage Family History Family History (Updated 05/27/20 @ 12:14 by Chary Gutiérrez RN) Father Hypertension Social History Social History Smoking status: Never smoker Smoking end date: 05/30/16 Alcohol intake: current Substance use: never Additional living arrangements comments: With her and other two children. 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
--- NOTE | 2020-05-29 07:38 | WPDOBADMIT ---
Obstetrics - Admit Note Admission Note: record reviewed. No pertinent additions to the history and/or any subsequent changes in the physical findings that are not consistent with the expected course of the were found. Additions to the history and/or subsequent changes in the physical findings follow. Here for MIL. Cervix 4/50/-3 AROM with clear fluid.FHTs reactive
[2020-05-29] MEDS: LACTATED RINGERS 1,000 ML 125 ML IV CONT (09:06)
[2020-05-29 09:11] LABS: Glucose Point of Care 47 (65-105)
[2020-05-29] MEDS: DEXTROSE 5%/LACTATED RINGERS 1,000 ML 100 ML IV CONT (09:24)
[2020-05-29 10:30] LABS: Glucose Point of Care 59 (65-105)
[2020-05-29] MEDS: fentaNYL CITRATE INJ (*CRX) 100 MCG/2 ML VIAL IV PUSH (10:56)
[2020-05-29 11:13] LABS: Rapid Plasma Reagin Non-Reactive (NonReactive)
[2020-05-29 12:22] LABS: Glucose Point of Care 49 (65-105)
--- NOTE | 2020-05-29 12:45 | PM.OBPRVD ---
OB - Delivery Note Procedure Delivery date: 05/29/20 Procedure: events: Gestational Diabetes (Type 1 DM) and Labor Induction Intrapartal events: None Induction method: AROM and per pitocin protocol Delivery monitor: external uterine and internal FHT Route of delivery: Laceration Description: Periurethral (left) and Perineal - 1st Degree Delivery repair: vicryl (3-0 ) Specimen: Yes (placenta) Quantitative Blood Loss (ml): 98 Anesthesia type: Epidural Disposition: PACU [place] Baby Date of : 05/31/20 Weeks of gestation at delivery: 39 Infant gender: Female Weight (pounds): 8 Weight (ounces): 8 presentation: vertex position: Left Occiput Anterior Placenta delivery description: Spontaneous cord vessel description: 3 Vessels and Nuchal Cord score one minute: 8 score five minutes: 9
--- NOTE | 2020-05-29 12:47 | PM.OBDSVD ---
DS: Admitting Diagnosis Admitting Diagnosis Admitting Diagnosis: IUP 39 wks Type 1 DM DS: Discharge Diagnosis Discharge Diagnosis (1) (normal spontaneous vaginal delivery): Code(s): O80 - Encounter for full-term uncomplicated delivery Status: Acute (2) Insulin-dependent diabetes mellitus during , antepartum: Status: Acute (3) Cholelithiasis with chronic cholecystitis: Code(s): K80.10 - Calculus of gallbladder with chronic cholecystitis without obstruction Status: Chronic (4) 39 weeks gestation of : Code(s): Z3A.39 - 39 weeks gestation of Status: Acute OB - DS: Summary OB Procedures : NST and Ultrasound OB Procedures Intrapartum: Spontaneous Vag Delivery OB Procedures: : None Peripartum Data Delivery Method: Natural Vaginal Laceration Description: Periurethral and Perineal - 1st Degree complications: none Status at Discharge Functional status at discharge: independent ambulation Overall status at discharge: patient is progressing back to baseline Time Spent with Patient Time attestation: Total time spent providing and/or coordinating discharge services: DS: Data Data Completed and Pending Labs on day of discharge: Labs from last 24 hours 05/29/20 05/29/20 05/29/20 11:56 10:04 09:00 WBC RBC Hgb Hct MCV MCH MCHC RDW Plt Count MPV Immature Gran % (Auto) Neut % (Auto) Lymph % (Auto) [place] % (Auto) Eos % (Auto) Baso % (Auto) Lymph # (Auto) [place] # (Auto) Eos # (Auto) Baso # (Auto) Abs Immat Gran (auto) Absolute Neuts (auto) Absolute Nucleated RBC Nucleated RBC % POC Capillary Glucose 49 L* 59 L* 47 L* RPR Blood Type Antibody Screen 05/29/20 05/29/20 05/29/20 06:03 06:00 06:00 WBC RBC Hgb Hct MCV MCH MCHC RDW Plt Count MPV Immature Gran % (Auto) Neut % (Auto) Lymph % (Auto) [place] % (Auto) Eos % (Auto) Baso % (Auto) Lymph # (Auto) [place] # (Auto) Eos # (Auto) Baso # (Auto) Abs Immat Gran (auto) Absolute Neuts (auto) Absolute Nucleated RBC Nucleated RBC % POC Capillary Glucose 94 RPR Non-reactive Blood Type O Negative Antibody Screen Negative 05/29/20 06:00 WBC 7.9 RBC 4.05 L Hgb 10.9 L Hct 32.7 L MCV 80.7 MCH 26.9 MCHC 33.3 RDW 14.3 Plt Count 181 MPV 11.5 H Immature Gran % (Auto) 0.9 H Neut % (Auto) 67.3 Lymph % (Auto) 22.0 [place] % (Auto) 5.6 Eos % (Auto) 3.7 Baso % (Auto) 0.5 Lymph # (Auto) 1.73 [place] # (Auto) 0.4 Eos # (Auto) 0.3 Baso # (Auto) 0.0 Abs Immat Gran (auto) 0.07 H Absolute Neuts (auto) 5.3 Absolute Nucleated RBC 0.0 Nucleated RBC % 0.0 POC Capillary Glucose RPR Blood Type Antibody Screen Discharge Plan Discharge Attending physician on discharge: Estefany Aranda Discharging Clinician: Estefany Aranda Anticipated Discharge Date/Time: 05/31/20 12:48 Patient Disposition: Home, Self-Care Activity: may shower and pelvic rest Diet: diabetic and low fat Patient Instructions: Antibiotic Form Stand Alone Forms: General Discharge Information Follow-up/Referrals: Estefany Aranda MD [Physician] - Edwin Fung DO [Physician] - Discharge Medications: New norethindrone (contraceptive) 0.35 mg tablet 0.35 mg PO DAILY Qty: 84 RF: 3 Novolin N NPH U-100 Insulin 100 unit/mL Suspension 17 units subcut QAM Qty: 10 RF: 0 insulin aspart U-100 [Novolog U-100 Insulin aspart] 100 unit/mL Solution 15 units subcut QPM Qty: 10 RF: 0 insulin aspart U-100 [Novolog U-100 Insulin aspart] 100 unit/mL Solution 13 units subcut QAM Qty: 10 RF: 0 Novolin N NPH U-100 Insulin 100 unit/mL Suspension 12 units subcut HS Qty: 10 RF: 0 Continued hydrocodone-acetaminophen [[place]] 5-325 mg tablet
[2020-05-29] MEDS: OXYTOCIN 30 UNITS/NS 500 ML 30 UNITS/500 ML BAG 125 UNITS IV CONT (13:09)
[2020-05-29 14:52] LABS: Glucose Point of Care 130 (65-105)
[2020-05-29] MEDS: INSULIN ASPART (*BKC) 100 UNITS/ML 30 UNITS SUB-Q (19:03)
[2020-05-29 21:12] LABS: Glucose Point of Care 82 (65-105)
--- NOTE | 2020-05-29 23:30 | PC.NURSE ---
Blood sugar 48 per glucometer, NPH held. [place] juice and luba crackers given, will recheck blood sugar in about an hour. Pt. denies symptoms of a low blood sugar at this time.
[2020-05-29 23:31] LABS: Glucose Point of Care 48 (65-105)
--- NOTE | 2020-05-30 00:30 | PC.NURSE ---
Blood sugar 59 per glucometer, orange juice and luba crackers given along with a popsicle. Pt asymptomatic. Will recheck blood sugar
[2020-05-30 00:34] LABS: Glucose Point of Care 59 (65-105)
--- NOTE | 2020-05-30 01:00 | PC.NURSE ---
Talked to Dr. Dennis on the phone, told her about the 1 hour pp blood sugar, insulin orders for bedtime and that I help the NPH due to a low blood sugar of 48. I gave the patient orange juice and luba crackers, rechecked blood sugar an hour later and it was still low, 59 per glucometer. I gave the patient another glass of orange juice and a popsicle. Orders recieved to continue interventions and checking blood sugar till it is above 70, at 0300 Dr. Dennis ordered 12 units of NPH. Then a fasting blood sugar will be done in the am
[2020-05-30] MEDS: IBUPROFEN 600 MG TABLET PO ×2 (01:09→12:41)
--- NOTE | 2020-05-30 02:08 | PC.NURSE ---
Blood sugar 104 per glucometer, no further orders at this time or interventions. Will check blood sugar in about an hour and give 12 units of NPH per orders.
[2020-05-30 02:11] LABS: Glucose Point of Care 104 (65-105)
[2020-05-30 03:18] LABS: Glucose Point of Care 80 (65-105)
[2020-05-30] MEDS: INSULIN HUMAN NPH (*BKC) 100 UNITS/ML 25 UNITS SUB-Q (03:31)
--- NOTE | 2020-05-30 03:36 | PC.NURSE ---
Blood sugar taken and it was 80, orange juice, crackers and peanut butter given to patient before the dose of NPH was given per Dr. Dennis. Pt. states she is asymptomatic at this time.
[2020-05-30 05:12] LABS: Hematocrit 30.1 % (37.0-47.0); Hemoglobin 9.8 g/dL (12.0-15.0)
[2020-05-30 07:18] LABS: Glucose Point of Care 100 (65-105)
[2020-05-30 08:50] VITALS: BP 134/85; PULSE 80; RESP 18; TEMP 36.2
[2020-05-30 09:33] LABS: Glucose Point of Care 70 (65-105)
--- NOTE | 2020-05-30 09:59 | PM.OBPNVD ---
OB - PN: Subj Subjective Date/time seen: 05/30/20 09:59 Patient comments: no complaints and pain well controlled baby status: doing well OB - PN: Obj Data Labs CBC & Chem 7: 05/30/20 05:02 Labs: Laboratory Results - last 24 hr 05/29/20 05/29/20 05/29/20 06:00 10:04 11:56 Hgb Hct POC Capillary Glucose 59 L* 49 L* RPR Non-reactive 05/29/20 05/29/20 05/29/20 14:47 21:05 23:28 Hgb Hct POC Capillary Glucose 130 H 82 48 L* RPR 05/30/20 05/30/20 05/30/20 00:30 02:08 03:14 Hgb Hct POC Capillary Glucose 59 L* 104 80 RPR 05/30/20 05/30/20 05/30/20 05:02 07:15 09:31 Hgb 9.8 L Hct 30.1 L POC Capillary Glucose 100 70 RPR OB - PN A/P Assessment and Plan (1) Type 1 diabetes mellitus with hyperglycemia: Code(s): E10.65 - Type 1 diabetes mellitus with hyperglycemia Status: Acute Assessment and Plan: will 1/2 insulin again due to hypoglycemia Plan day: 1 Plan: routine care Time Spent With Patient Time: Total time spent is greater than 50% in coordination of care (as documented) at patient's floor/unit and/or counseling patient: Exam : Bimanual exam- vagina & uterus: other (Uterus firm, nt @U)
[2020-05-30] MEDS: INSULIN HUMAN NPH (*BKC) 100 UNITS/ML 17 UNITS SUB-Q (10:00)
[2020-05-30] MEDS: INSULIN ASPART (*BKC) 100 UNITS/ML 13 UNITS SUB-Q (10:00)
--- NOTE | 2020-05-30 10:40 | WPDANLDPN2 ---
Anes-Prog Note L&D Date/Time: 05/30/20 10:40 Comfortable throughout: labor and delivery Neuraxial method: epidural Epidural/Spinal procedure site: clean & non-tender Neuro status: Neuro function grossly intact. Cardiovascular status: normal Respiratory status: normal Airway patency: baseline Mental status: baseline Post-Op hydration status: normal Vital Signs: Last Vital Signs Temp 37.1 C 05/29/20 19:15 Pulse 78 05/29/20 19:15 Resp 18 05/29/20 19:15 BP 148/87 H 05/29/20 19:15 Pulse Ox 97 05/29/20 15:07 Pain score (VAS): 0 Post-procedural complaints: none Patient feedback: Patient satisfied with anesthetic care.
[2020-05-30 11:53] LABS: Glucose Point of Care 180 (65-105)
[2020-05-30] MEDS: DOCUSATE SODIUM 100 MG CAPSULE PO ×2 (12:41→17:33)
[2020-05-30] MEDS: MULTIVIT/MIN/PREN/FOL AC/IRON TABLET 1 TAB PO (12:41)
[2020-05-30] MEDS: POLYSACCHARIDE IRON COMPLEX 150 MG CAPSULE PO ×2 (12:42→17:33)
[2020-05-30 17:16] LABS: Glucose Point of Care 217 (65-105)
[2020-05-30] MEDS: ACETAMINOPHEN 325 MG TABLET 650 MG PO (17:32)
[2020-05-30] MEDS: INSULIN ASPART (*BKC) 100 UNITS/ML 15 UNITS SUB-Q (18:26)
[2020-05-30 20:15] VITALS: BP 139/82; PULSE 86; RESP 18; TEMP 36.2; O2SAT 100
[2020-05-30 20:27] LABS: Glucose Point of Care 199 (65-105)
--- NOTE | 2020-05-30 21:06 | PC.NURSE ---
Patient to view the discharge video Mother & Baby Care, The First Two Weeks online, instructions given. Patient was given the opportunity and encouraged to ask questions. Patient verbalized understanding of information shared and has been given the mother/baby guide for home reference.
[2020-05-30] MEDS: INSULIN HUMAN NPH (*BKC) 100 UNITS/ML 12 UNITS SUB-Q (21:35)
[2020-05-30 21:42] LABS: Glucose Point of Care 182 (65-105)
[2020-05-31 07:08] LABS: Glucose Point of Care 52 (65-105)
[2020-05-31] MEDS: IBUPROFEN 600 MG TABLET PO (07:35)
[2020-05-31] MEDS: POLYSACCHARIDE IRON COMPLEX 150 MG CAPSULE PO (07:36)
[2020-05-31] MEDS: DOCUSATE SODIUM 100 MG CAPSULE PO (07:37)
[2020-05-31 07:40] VITALS: PULSE 69; RESP 18; TEMP 36.7
[2020-05-31 08:39] LABS: Glucose Point of Care 78 (65-105)
[2020-05-31] MEDS: INSULIN ASPART (*BKC) 100 UNITS/ML 13 UNITS SUB-Q (09:16)
[2020-05-31] MEDS: INSULIN HUMAN NPH (*BKC) 100 UNITS/ML 17 UNITS SUB-Q (09:44)
[2020-05-31 10:37] LABS: Glucose Point of Care 126 (65-105)
--- NOTE | 2020-05-31 11:23 | PM.OBPNVD ---
OB - PN: Subj Subjective Date/time seen: 05/31/20 11:23 Patient comments: no complaints and pain well controlled baby status: doing well OB - PN: Obj Data Labs CBC & Chem 7: 05/30/20 05:02 Labs: Laboratory Results - last 24 hr 05/30/20 05/30/20 05/30/20 11:51 17:13 20:17 POC Capillary Glucose 180 H 217 H 199 H 05/30/20 05/31/20 05/31/20 21:34 07:05 08:33 POC Capillary Glucose 182 H 52 L* 78 05/31/20 10:34 POC Capillary Glucose 126 H OB - PN A/P Assessment and Plan (1) Insulin-dependent diabetes mellitus during , antepartum: Status: Acute Assessment and Plan: call endocrine call if need to adjust insulin (2) Cholelithiasis with chronic cholecystitis: Code(s): K80.10 - Calculus of gallbladder with chronic cholecystitis without obstruction Status: Chronic Assessment and Plan: follow up with surgeon Plan day: 2 Plan: routine care, discharge home and follow up 6 weeks Time Spent With Patient Time: Total time spent is greater than 50% in coordination of care (as documented) at patient's floor/unit and/or counseling patient: Exam : Bimanual exam- vagina & uterus: other (Uterus firm, nt @U)
[2020-06-03 10:59] VITALS: BP 127/89; PULSE 86; RESP 20; TEMP 37; O2SAT 100
--- NOTE | 2020-06-03 12:13 | PC.NURSE ---
1100 F/U nurse asked for LC assistance for mother and baby. Baby awake and eager. Mother reports one successful latch through the night, and about twice while in the hospital. Mother expresses being afraid with latch, because of pain, and not sure what baby is getting. She reports doing some pumping, but not consistently. Mother taught cross-cradle position, positioning and alignment, use of c-hold and nose to nipple latch on technique. Baby latched easily with apparent deep latch, maintained latch and demonstrated rhythmic sucking, frequent swallowing. Mother's milk is in, and she can easily hand express milk. Baby nursed 15 minutes, and nurse had mother switch sides to be able to nurse both sides, and to teach mother football position. Mother taught she can allow baby to nurse on one side as long as she is nursing vigorously, and encouraged to offer second side at each feeding. Again baby latched easily and demonstrated effective breast feeding for another 15 minutes. Mother instructed to supplement after each breast feeding because of jaundice, and need for baby to have a stool. She can continue doing some pumping after feedings, especially if still feeling uncomfortable; breast milk to be offered first as supplement if available, and formula used as needed, giving infant amount she wants. Baby took 9cc of Enfamil today after breast feeding, and was asleep. Mother taught how to hand express and instructed to use breast milk as nipple care, and then air drying. Reviewed frequency and duration of feedings, feeding q2-3h and on demand, waking infant if necessary. Mother referred to her feeding log for monitoring wet/dirty diapers each day. Mother seemed very pleased at how baby did at this feeding; encouraged her to try remain calm, and if she is having difficulty latching, to stop, calm down, possibly give a few swallows of bottle and try again. Mother states she does have her Mother-Baby Guide at home; nurse referred her to the breast feeding section for care of breasts, and collection and storage of breast milk, as well as LC contact information if she has continued questions or concerns. Mother very attentive and voiced understanding of all information shared. Initialized on 06/03/20 11:56 - END OF NOTE
== END 2020-05-31 13:21 | disposition home or self-care (01) | DRG 806 ==
LOC: ANHLDR 12:50 → ANHOB2 15:14
PROVIDERS: Admitting Provider Obstetrics & Gynecology Gynecology; PCP Physician Assistant; Visit Provider Obstetrics & Gynecology Gynecology
DX: O24.02 Pre-existing type 1 diabetes mellitus, in childbirth (principal); K80.10 Calculus of gallbladder with chronic cholecystitis without obstruction; Z37.0 Single live birth; E10.9 Type 1 diabetes mellitus without complications; O71.82 Other specified trauma to perineum and vulva; O69.81X0 Labor and delivery complicated by cord around neck, without compression, not applicable or unspecified; O99.62 Diseases of the digestive system complicating childbirth; Z3A.39 39 weeks gestation of pregnancy; Z79.4 Long term (current) use of insulin
CPT/HCPCS: 36415; 85014; 85018; 85025; 86592; 86850; 86900; 86901; 88307; A9270; J1815; J2590; J2795; J3010; J7120; J7121